=== PATIENT | male | born 1960 | race Caucasian/White ===

== ENCOUNTER → 2021-05-16 | Outpatient (CLI) | payer MEDICAID ==
[~2021-05-16] MED LIST: CATHETER FLUSH 10 ML SYR IV PRN; REGADENOSON 0.4 MG/5 ML SYR (LEXISCAN) IV ONE
[2021-05-16 13:03] VITALS: BP 170/96
--- NOTE | 2021-05-18 16:45 | NUCLEAR STRESS TEST ---
REGADENOSON NUCLEAR STRESS Date of procedure: 05/16/2021. Primary care provider: [facility] Admitting physician: Eduardo Finley Jr., MD. INDICATION: Coronary artery disease with unspecified angina pectoris. BASELINE ELECTROCARDIOGRAM: Sinus rhythm with poor R wave progression. STRESS TEST PROCEDURE: The patient was administered 0.4 mg of intravenous Regadenoson. The resting heart rate was 77 bpm and the peak heart rate was 94 bpm. The resting blood pressure was 170/96 mmHg and the minimum blood pressure was 160/100 mmHg. This represents a normal heart rate and a normal blood pressure response to Regadenoson. The test was stopped due to the protocol. There was no chest discomfort during the test. There were no arrhythmias during the test. There were no significant stress induced electrocardiogram changes. NUCLEAR PROCEDURE: The patient was administered 10.1 mCi of intravenous technetium 99m Tetrofosmin at rest for the rest images. The patient was subsequently administered 30.3 mCi of intravenous technetium 99m Tetrofosmin at peak stress for the stress images. Following an appropriate wait after each injection, imaging was obtained. The images were subsequently processed and reformatted in the usual views. Gated imaging was obtained. The image quality was adequate with a moderate degree of gastrointestinal attenuation artifact. CT attenuation correction was used as a adjunct to standard imaging. Both the corrected and uncorrected images were reviewed for interpretation. NUCLEAR RESULTS: There was a small, moderate intensity, reversible apical defect with a small amount of inducible ischemia with a summed stress score of 6 and a summed difference score of 6. There was normal left ventricular chamber size wi th an end-diastolic volume of 88 mL and an end-systolic volume of 35 mL. There was no evidence of transient ischemic dilatation. The TID ratio was 1.03. There was apical hypokinesis with overall normal left ventricular systolic function with a calculated ejection fraction of 60%. IMPRESSION: 1. Normal heart rate and blood pressure response to regadenoson. 2. There was no chest discomfort, arrhythmias, or electrocardiogram changes during the test. 3. There was a small, moderate intensity, reversible apical defect with a small amount of inducible ischemia with a summed stress score of 6 and a summed difference score of 6. 4. There was apical hypokinesis with overall normal left ventricular systolic function with a calculated ejection fraction of 60%. 5. This is an abnormal result although considered low risk for possible future coronary ischemic events. Certain portions of this document may have been dictated utilizing voice recognition technology. Inherent to this technology, typographical and gramma tical errors may exist. As much as I am diligent to identify and correct these mistakes, some errors may remain in the document. EDUARDO FINLEY JR, MD May 18, 2021 16:45
== END ==
LOC: CARD 11:00
PROVIDERS: ATTEND Internal Medicine Cardiovascular Disease
DX: I35.8 Other nonrheumatic aortic valve disorders (principal); I51.7 Cardiomegaly; I25.119 Atherosclerotic heart disease of native coronary artery with unspecified angina pectoris
CPT/HCPCS: 78452; 93017; 93306

== ENCOUNTER 2022-02-26 17:22 | Emergency (ER) | payer MEDICAID ==
[~2022-02-26] VITALS: Ht 177 cm; Wt 100.0 kg
--- NOTE | 2022-02-26 17:29 | ED General ---
General Chief Complaint: General Problems/Pain Stated Complaint: FELL,CANT STAND History of Present Illness Date Seen by Provider: Feb 26, 2022 Time Seen by Provider: 17:27 Initial Comments 61-year-old male with PMH of CAD with stents over 10 years ago/DM2/HTN, is here at the urging of his and daughter due to complaints of recurrent falling which has been going on for the past 2 months resulting in cuts and scrapes on his legs. Patient has not had any falls for the past 2 days. Patient has a PCP appointment set for tomorrow morning. Denies fever, cough, SOB, chest pain, headache, dizziness. Allergies and Home Medications Allergies Coded Allergies: No Allergy Information Available (Unverified , 05/16/21) Patient Home Medication List Home Medication List Reviewed: Yes Review of Systems Review of Systems Constitutional: no symptoms reported, weakness (generalized, intermittent) EENTM: no symptoms reported Respiratory: no symptoms reported Cardiovascular: no symptoms reported Gastrointestinal: no symptoms reported Genitourinary: no symptoms reported Musculoskeletal: other (falls) Skin: no symptoms reported Psychiatric/Neurological: No Symptoms Reported Hematologic/Lymphatic: No Symptoms Reported Immunological/Allergic: no symptoms reported Physical Exam Vital Signs Vital Signs - First Documented 02/26/22 17:48 Temp 36.3 Pulse 83 Resp 20 B/P (MAP) 115/63 (80) Pulse Ox 90 O2 Delivery Room Air Capillary Refill : Height, Weight, BMI Height: '" Weight: lbs. oz. kg; BMI Method: General Appearance: No Apparent Distress, WD/WN, Other (dry mucous membranes) HEENT: PERRL/EOMI, Normal ENT Inspection Neck: Full Range of Motion, Normal Inspection, Non Tender, Supple Respiratory: Chest Non Tender, Lungs Clear, Normal Breath Sounds, No Respiratory Distress Cardiovascular: Regular Rate, Rhythm Gastrointestinal: Non Tender, Soft, Hernia (umbilical hernia present) Back: Normal Inspection, No CVA Tenderness Extremity: Normal Range of Motion, Other (multiple old scars and abrasions on his legs from prior falls) Neurologic/Psychiatric: Alert, Oriented x3, No Motor/Sensory Deficits, Normal 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, 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 as Tested Skin: Warm/Dry Progress/Results/Core Measures Suspected Sepsis SIRS Temperature: Pulse: Respiratory Rate: Laboratory Tests 02/26/22 14:28: White Blood Count 11.2H Blood Pressure / Mean: Laboratory Tests 02/26/22 14:28: Creatinine 0.69, Platelet Count 320, Total Bilirubin 0.7 Results/Orders Lab Results Laboratory Tests Test 02/26/22 14:28 02/26/22 17:28 Range/Units White Blood Count 11.2 H 4.3-11.0 10^3/uL Red Blood Count 4.85 4.30-5.52 10^6/uL Hemoglobin 15.2 13.3-17.7 g/dL Hematocrit 43 40-54 % Mean Corpuscular Volume 88 80-99 fL Mean Corpuscular Hemoglobin 31 25-34 pg Mean Corpuscular Hemoglobin Concent 36 32-36 g/dL Red Cell Distribution Width 13.4 10.0-14.5 % Platelet Count 320 130-400 10^3/uL Mean Platelet Volume 9.6 9.0-12.2 fL Immature Granulocyte % (Auto) 0 % Neutrophils (%) (Auto) 71 42-75 % Lymphocytes (%) (Auto) 21 12-44 % Monocytes (%) (Auto) 5 0-12 % Eosinophils (%) (Auto) 2 0-10 % Basophils (%) (Auto) 0 0-10 % Neutrophils # (Auto) 7.9 H 1.8-7.8 10^3/uL Lymphocytes # (Auto) 2.3 1.0-4.0 10^3/uL Monocytes # (Auto) 0.6 0.0-1.0 10^3/uL Eosinophils # (Auto) 0.2 0.0-0.3 10^3/uL Basophils # (Auto) 0.0 0.0-0.1 10^3/uL Immature Granulocyte # (Auto) 0.1 0.0-0.1 10^3/uL Sodium Level 141 135-145 MMOL/L Potassium Level 2.9 L 3.6-5.0 MMOL/L Chloride Level 92 L 98-107 MMOL/L Carbon Dioxide Level 34 H 21-32 MMOL/L Anion Gap 15 H 5-14 MMOL/L Blood Urea Nitrogen 8 7-18 MG/DL Creatinine 0.69 0.60-1.30 MG/DL Estimat Glomerular Filtration Rate 105 BUN/Creatinine Ratio 12 Glucose Level 141 H 70-105 MG/DL Calcium Level 6.1 L 8.5-10.1 MG/DL Corrected Calcium 6.7 L 8.5-10.1 MG/DL Magnesium Level 0.4 *L 1.6-2.4 MG/DL Total Bilirubin 0.7 0.1-1.0 MG/DL Aspartate Amino Transf (AST/SGOT) 31 5-34 U/L Alanine Aminotransferase (ALT/SGPT) 19 0-55 U/L Alkaline Phosphatase 221 H 40-136 U/L Troponin I < 0.30 <0.30 NG/ML Total Protein 6.8 6.4-8.2 GM/DL Albumin 3.3 3.2-4.5 GM/DL Serum Alcohol < 10 <10 MG/DL Pro-B-Type Natriuretic Peptide 251.5 H <125.0 PG/ML My Orders Orders - KATHERINE SANCHEZ MD Alcohol (02/26/22 17:46) Cbc With Automated Diff (02/26/22 17:46) Comprehensive Metabolic Panel (02/26/22 17:46) Drug Screen Stat (Urine) (02/26/22 17:46) Magnesium (02/26/22 17:46) Ua Culture If Indicated (02/26/22 17:46) Troponin I Fs (02/26/22 17:46) Chest 1 View Ap/Pa Only (02/26/22 17:46) Ekg Tracing (02/26/22 17:46) Orthostatic Vital Signs (Adult (02/26/22 17:46) Ct Head Wo (02/26/22 17:47) Ed Iv/Invasive Line Start (02/26/22 18:21) Ns Iv 1000 Ml (Sodium Chloride 0.9%) (02/26/22 18:30) Potassium Cl 10meq/50ml Ivpb (Kcl 10 Meq (02/26/22 18:21) Potassium Chloride (Tablet) (K Dur Table (02/26/22 18:30) Probnp Fs (02/26/22 18:29) Magnesium 1 Gm/100 Ml Ivpb (Magnesium Syed (02/26/22 18:45) Magnesium 1 Gm/100 Ml Ivpb (Magnesium Syed (02/26/22 18:45) Medications Given in ED Current Medications Medications Dose Ordered Sig/Calvin Route Start Time Stop Time Status Last Admin Dose Admin Potassium Chloride 40 meq ONCE ONCE PO 02/26/22 18:30 02/26/22 18:31 DC 02/26/22 18:33 40 MEQ Vital Signs/I&O 02/26/22 02/26/22 17:48 18:38 Temp 36.3 Pulse 83 75 80 90 Resp 20 B/P (MAP) 115/63 (80) 109/68 (82) 86/59 (68) 116/67 (83) Pulse Ox 90 O2 Delivery Room Air Capillary Refill : Progress Note : Progress Note 1. RECURRENT FALLS: ELECTROLYTE DISTURBANCE: HYPOKALEMIA & HYPOMAGNESEMIA: - CT HEAD: no acute findings - CXR: mild pulmonary edema, however clinically lungs are clear and pt does not have any SOB, and BNP level is 250 with O2 saturation at 96% on room air. - EKG/ Troponin: non-ischemic - CMP: s. K is 3.0 and S. Mg is 0.4 - Potassium repletion with iv Potassium 20mEq and oral potassium 40mEq STAT - Magnesium repletion with Mag Sulfate 2mg iv STAT - NS IVF bolus STAT - Prescription for magnesium and potassium - Pt has PCP appointment tomorrow and will need repeat CMP lab -The patient was seen in the ED, and treated appropriately to presentation at a specific point in time. Patient is informed that there is a possibility that disease and illness can evolve and change in acuity rapidly or slowly after patient is discharged from the ER. Precautionary advice given to the patient for immediate return to ER if symptoms worsen or do not resolve, and to seek emergency care sooner rather than later. Pt also advised on the importance of PCP follow up and compliance with management and follow up plan with PCP and/or specialist, as this is part of the management plan. Pt verbally expressed understanding. 2. ORTHOSTATIC HYPOTENSION: -Advised pt to rise slowly from sitting and lying down position, and to drink a glass of water before rising. Pt only drinks one glass of water everyday. Advised to increase water intake. Diagnostic Imaging Diagonstic Imaging: Xray, CT Plain Films/CT/US/NM/MRI: chest, head Comments [facility], [place] NAME: CRISTIAN OSHEA [facility] REC#: [id number] PT STATUS: REG ER : 1960 PHYSICIAN: KATHERINE SANCHEZ MD ADMIT DATE: 02/26/22/ER FS Signed Date of Exam:02/26/22 CT HEAD WO EXAMINATION: CT head without contrast. TECHNIQUE: Multiple contiguous axial images were obtained through the brain without the use of intravenous contrast. All CT scans use one or more of the following dose optimizing techniques: automated exposure control, MA and/or KvP adjustment based on patient size and exam type or iterative reconstruction. HISTORY: Fall. Syncopal episode. COMPARISON: None available. FINDINGS: No large acute territorial ischemia, mass, or hemorrhage. No midline shift or mass effect. The ventricles, cortical sulci, and basilar cisterns are patent and unremarkable. The orbits are normal. Retained secretions are seen throughout the right maxillary, ethmoid, and frontal sinuses. Mastoid air cells are clear. Contusion is seen overlying the lateral right orbit. No osseus lesions or fractures are seen. IMPRESSION: 1. No large acute territorial ischemia, mass, or hemorrhage. 2. Chronic right-sided sinusitis. Dictated by: Dictated on workstation # [id number] Dict: 02/26/221817 Trans: 02/26/221827 ZHOU [id number] Interpreted by: MICK JAQUEZ DO Electronically signed by: MICK JAQUEZ DO 02/26/221827 [facility], [place] NAME: CRISTIAN OSHEA [facility] REC#: [id number] PT STATUS: REG ER : 1960 PHYSICIAN: KATHERINE SANCHEZ MD ADMIT DATE: 02/26/22/ER FS Draft Date of Exam:02/26/22 CHEST 1 VIEW AP/PA ONLY EXAMINATION: Chest 1 view HISTORY: near syncope COMPARISON: None available. FINDINGS: There is mild edema. No pleural effusion or pneumothorax. Heart size is normal for portable technique. IMPRESSION: 1. Mild pulmonary edema. Dictated on workstation # [id number] Dict: 02/26/221817 Trans: 02/26/221818 ZHOU [id number] Interpreted by: MIN VASQUEZ MD Electronically signed by: Departure Impression Primary Impression: Recurrent falls Additional Impressions: Orthostatic hypotension Electrolyte disturbance Hypomagnesemia Hypokalemia Disposition: 01 HOME, SELF-CARE (ERASED) Condition: Improved Departure-Patient Inst. Referrals: YOHAN LILLY MD (PCP/Family) Primary Care Physician Patient Instructions: Hypokalemia (DC), Preventing Falls in Older Adults, Low Magnesium Level (DC), Orthostatic Hypotension (DC) Add. Discharge Instructions: - Prescription for magnesium and potassium - Pt has PCP appointment tomorrow and will need repeat CMP lab -Advised pt to rise slowly from sitting and lying down position, and to drink a glass of water before rising. Pt only drinks one glass of water everyday. Advised to increase water intake. All discharge instructions reviewed with patient and/or family. Voiced understanding. Scripts Potassium Chloride (Potassium Chloride) 20 Meq Packet 20 MEQ PO DAILY for 7 Days, #7 PACKET Prov: KATHERINE SANCHEZ MD 02/26/22 Magnesium (Magnesium) 250 Mg Tablet 250 MG PO DAILY for 7 Days, #7 TAB Prov: KATHERINE SANCHEZ MD 02/26/22 KATHERINE SANCHEZ MD Feb 26, 2022 17:28
[2022-02-26 17:55] LABS: BASOPHILS % (AUTO) 0 % (0-10); EOSINOPHILS # (AUTO) 0.2 10^3/uL (0.0-0.3); EOSINOPHILS % (AUTO) 2 % (0-10); HEMATOCRIT 43 % (40-54); HEMOGLOBIN 15.2 g/dL (13.3-17.7); LYMPHOCYTES # (AUTO) 2.3 10^3/uL (1.0-4.0); LYMPHOCYTES % (AUTO) 21 % (12-44); MEAN CORPUSCULAR HEMOGLOBIN 31 pg (25-34); MEAN CORPUSCULAR HGB CONC 36 g/dL (32-36); MEAN CORPUSCULAR VOLUME 88 fL (80-99); MEAN PLATELET VOLUME 9.6 fL (9.0-12.2); MONOCYTES # (AUTO) 0.6 10^3/uL (0.0-1.0); MONOCYTES % (AUTO) 5 % (0-12); NEUTROPHILS # (AUTO) 7.9 10^3/uL (1.8-7.8); NEUTROPHILS % (AUTO) 71 % (42-75); PLATELET COUNT 320 10^3/uL (130-400); WHITE BLOOD COUNT 11.2 10^3/uL (4.3-11.0)
[2022-02-26 18:15] LABS: BUN/CREATININE RATIO 12; CALCIUM 6.1 MG/DL (8.5-10.1); CARBON DIOXIDE 34 MMOL/L (21-32); CHLORIDE 92 MMOL/L (98-107); CREATININE SERUM 0.69 MG/DL (0.60-1.30); GFR ESTIMATED 105; GLUCOSE 141 MG/DL (70-105); POTASSIUM 2.9 MMOL/L (3.6-5.0); SODIUM 141 MMOL/L (135-145)
[2022-02-26 18:16] LABS: ALANINE AMINOTRANSFERASE 19 U/L (0-55); ALKALINE PHOSPHATASE 221 U/L (40-136); BILIRUBIN,TOTAL 0.7 MG/DL (0.1-1.0); MAGNESIUM 0.4 MG/DL (1.6-2.4)
[2022-02-26 18:17] LABS: ALBUMIN 3.3 GM/DL (3.2-4.5); TOTAL PROTEIN 6.8 GM/DL (6.4-8.2)
--- NOTE | 2022-02-26 18:20 | Diagnostic Imaging Report ---
EXAMINATION: Chest 1 view HISTORY: near syncope COMPARISON: None available. FINDINGS: There is mild edema. No pleural effusion or pneumothorax. Heart size is normal for portable technique. IMPRESSION: 1. Mild pulmonary edema. Dictated by: Dictated on workstation # [id number]
[2022-02-26] MEDS ORDERED: POTASSIUM CL 10MEQ/50ML IVPB 50 ML IV STA (18:21)
--- NOTE | 2022-02-26 18:21 | Diagnostic Imaging Report ---
EXAMINATION: CT head without contrast. TECHNIQUE: Multiple contiguous axial images were obtained through the brain without the use of intravenous contrast. All CT scans use one or more of the following dose optimizing techniques: automated exposure control, MA and/or KvP adjustment based on patient size and exam type or iterative reconstruction. HISTORY: Fall. Syncopal episode. COMPARISON: None available. FINDINGS: No large acute territorial ischemia, mass, or hemorrhage. No midline shift or mass effect. The ventricles, cortical sulci, and basilar cisterns are patent and unremarkable. The orbits are normal. Retained secretions are seen throughout the right maxillary, ethmoid, and frontal sinuses. Mastoid air cells are clear. Contusion is seen overlying the lateral right orbit. No osseus lesions or fractures are seen. IMPRESSION: 1. No large acute territorial ischemia, mass, or hemorrhage. 2. Chronic right-sided sinusitis. Dictated by: Dictated on workstation # [id number]
[2022-02-26] MEDS ORDERED: KCL 20 MEQ TAB (K-DUR) PO ONE (18:30)
[2022-02-26] MEDS ORDERED: MAGNESIUM 2 GM/50 ML IVPB 50 ML IV ONE (18:30)
[2022-02-26] MEDS ORDERED: NS IV 1000 ML 1,000 ML IV SCH (18:30)
[2022-02-26 18:38] VITALS: BP_SYST 109; BP_SYST 116; BP_SYST 86; BP_DIAS 59; BP_DIAS 67; BP_DIAS 68
[2022-02-26] MEDS ORDERED: MAGNESIUM 1 GM/100 ML IVPB 100 ML IV ONE ×2 (18:45)
[2022-02-26] MEDS ORDERED: MAGN250T31 PO (19:28)
[2022-02-26] MEDS ORDERED: POTA20PA28 PO (19:28)
[2022-02-26 20:25] VITALS: BP 139/72
== END 2022-02-26 20:25 | disposition home or self-care (01) ==
LOC: EDUNIT# 17:22 → ER FS 17:23
DX: I95.1 Orthostatic hypotension (principal); E87.6 Hypokalemia; E83.42 Hypomagnesemia; R29.6 Repeated falls; Z86.79 Personal history of other diseases of the circulatory system; Z95.5 Presence of coronary angioplasty implant and graft; Z28.310 Unvaccinated for COVID-19
CPT/HCPCS: 36415; 70450; 71045; 80053; 80320; 83735; 83880; 84484; 85025; 93005; 93041

== ENCOUNTER 2022-06-30 11:51 | Emergency (ER) | payer MEDICAID ==
[~2022-06-30] VITALS: Ht 177 cm; Wt 100.0 kg
[~2022-06-30 11:51] MED LIST changes: -CATHETER FLUSH 10 ML SYR IV PRN; +MAGN250T31 PO; +POTA20PA28 PO; -REGADENOSON 0.4 MG/5 ML SYR (LEXISCAN) IV ONE
[2022-06-30 12:03] VITALS: BP 93/59
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
[2022-06-30 12:15] LABS: BASOPHILS % (AUTO) 0 % (0-10); EOSINOPHILS % (AUTO) 0 % (0-10); HEMATOCRIT 42 % (40-54); HEMOGLOBIN 14.8 g/dL (13.3-17.7); LYMPHOCYTES # (AUTO) 1.5 10^3/uL (1.0-4.0); LYMPHOCYTES % (AUTO) 10 % (12-44); MEAN CORPUSCULAR HEMOGLOBIN 31 pg (25-34); MEAN CORPUSCULAR HGB CONC 36 g/dL (32-36); MEAN CORPUSCULAR VOLUME 88 fL (80-99); MEAN PLATELET VOLUME 9.4 fL (9.0-12.2); MONOCYTES # (AUTO) 0.6 10^3/uL (0.0-1.0); MONOCYTES % (AUTO) 4 % (0-12); NEUTROPHILS # (AUTO) 12.1 10^3/uL (1.8-7.8); NEUTROPHILS % (AUTO) 85 % (42-75); PLATELET COUNT 312 10^3/uL (130-400); WHITE BLOOD COUNT 14.4 10^3/uL (4.3-11.0)
[2022-06-30] MEDS ORDERED: NS IV 1000 ML 500 ML IV SCH (12:15)
[2022-06-30 12:31] LABS: LYMPHOCYTES % (MANUAL) 13 %; MONOCYTES % (MANUAL) 5 %; NEUTROPHILS % (MANUAL) 82 %; PLATELET ESTIMATE NORMAL; RBC MORPH NORMAL
[2022-06-30 12:32] LABS: ALANINE AMINOTRANSFERASE 14 U/L (0-55); ALBUMIN 3.2 GM/DL (3.2-4.5); ALKALINE PHOSPHATASE 178 U/L (40-136); BILIRUBIN,TOTAL 0.5 MG/DL (0.1-1.0); BUN/CREATININE RATIO 11; CARBON DIOXIDE 30 MMOL/L (21-32); CHLORIDE 99 MMOL/L (98-107); CREATININE SERUM 0.66 MG/DL (0.60-1.30); GFR ESTIMATED 107; GLUCOSE 156 MG/DL (70-105); SODIUM 143 MMOL/L (135-145); TOTAL PROTEIN 6.6 GM/DL (6.4-8.2)
[2022-06-30 12:36] LABS: POTASSIUM 3.4 MMOL/L (3.6-5.0)
--- NOTE | 2022-06-30 12:46 | Diagnostic Imaging Report ---
CLINICAL INDICATION: Patient with hypoxia. Patient has seizure-like activity. EXAM: Portable chest x-ray, upright view. COMPARISON: Chest x-ray dated 02/26/2022. FINDINGS: Lungs/pleura: Lungs are clear. There is no pneumothorax. There is no pleural effusion. Mediastinum: Unremarkable. Pulmonary vasculature: Unremarkable. Heart: Unremarkable. Bones/extrathoracic soft tissue: There are small spurs involving the spine. There is interposition of air-filled intestine overlying the right upper quadrant. IMPRESSION: There is no radiographic evidence of acute cardiopulmonary process. Dictated by: Dictated on workstation # [id number]
[2022-06-30] MEDS ORDERED: NS IV 500 ML 0 ML ONE (12:55)
[2022-06-30] MEDS ORDERED: CEFEPIME INJECTION 1,000 MG in NS (IVPB) 50 ML IV ONE (13:15)
[2022-06-30 13:48] LABS: BILIRUBIN,URINE NEGATIVE (NEGATIVE); CLARITY,URINE CLEAR; COLOR,URINE YELLOW; GLUCOSE, URINE (UA) NEGATIVE (NEGATIVE); KETONES,URINE NEGATIVE (NEGATIVE); LEUKOCYTE ESTERASE ,URINE NEGATIVE (NEGATIVE); NITRITE,URINE NEGATIVE (NEGATIVE); PROTEIN,URINE NEGATIVE (NEGATIVE)
--- NOTE | 2022-06-30 13:51 | Diagnostic Imaging Report ---
CT HEAD WO DATE: 06/30/2022 12:28 PM INDICATION: possible seizure. TECHNIQUE: Computed tomography images of the head were obtained from skull base to vertex without intravenous contrast. One or more of the following dose reduction techniques were utilized: Automated exposure control (AEC), Adjustment of mA and/or kV according to patient size, Use of iterative reconstruction technique such as ASiR, CT scan done according to ALARA and image gently/image wisely COMPARISON: CT head without contrast 02/26/2022. FINDINGS: There is normal oswald-white matter differentiation. No hyperdense vessel to suggest acute thrombus. No acute intracranial hemorrhage. Mild generalized cerebral volume loss. Mild nonspecific periventricular hypoattenuation. Calcified atherosclerosis of the bilateral cavernous and paraclinoid internal carotid arteries and intracranial vertebral arteries. No intra- or extra-axial mass or fluid collection. The ventricles are normal in size, shape, and morphology. The subarachnoid cisterns are patent. Complete opacification of the right maxillary sinus and mucosal thickening within the ethmoid, and sphenoid sinuses.. The mastoid air cells are clear. The visualized portions of the orbits are normal. No aggressive osseous lesion or fracture. IMPRESSION: No acute intracranial hemorrhage. No large vascular territory farley-white loss. No intracranial mass, midline shift, or hydrocephalus. Mild cerebral volume loss. Mild chronic small vessel ischemic disease. Complete opacification of the right maxillary sinus and mucosal thickening within the ethmoid, and sphenoid sinuses. Dictated by: Dictated on workstation # [id number]
[2022-06-30 13:54] LABS: BACTERIA,URINE NEGATIVE /HPF
[2022-06-30] MEDS ORDERED: LEVO-55 PO (14:05)
== END 2022-06-30 14:15 | disposition left against medical advice (07) ==
LOC: EDUNIT# 11:51 → ER FS 11:52
DX: I95.9 Hypotension, unspecified (principal); R25.9 Unspecified abnormal involuntary movements; D72.829 Elevated white blood cell count, unspecified; R74.02 Elevation of levels of lactic acid dehydrogenase [LDH]; Z20.822 Contact with and (suspected) exposure to COVID-19
CPT/HCPCS: 36415; 70450; 71045; 80053; 81000; 83605; 84484; 85007; 85027; 87040; 87088; 87636; 93005

== ENCOUNTER 2022-07-13 18:53 | Inpatient (IN) | payer MEDICAID ==
[~2022-07-13] VITALS: Ht 175.2 cm; Wt 90.5 kg
[~2022-07-13 18:53] MED LIST changes: +LEVO-55 PO
[2022-07-13] MEDS ORDERED: NS IV 1000 ML 1,000 ML IV STA (18:58)
[2022-07-13 19:04] LABS: BASOPHILS % (AUTO) 0 % (0-10); EOSINOPHILS % (AUTO) 0 % (0-10); HEMATOCRIT 41 % (40-54); HEMOGLOBIN 14.4 g/dL (13.3-17.7); LYMPHOCYTES # (AUTO) 1.3 10^3/uL (1.0-4.0); LYMPHOCYTES % (AUTO) 10 % (12-44); MEAN CORPUSCULAR HEMOGLOBIN 31 pg (25-34); MEAN CORPUSCULAR HGB CONC 35 g/dL (32-36); MEAN CORPUSCULAR VOLUME 89 fL (80-99); MEAN PLATELET VOLUME 9.3 fL (9.0-12.2); MONOCYTES # (AUTO) 0.8 10^3/uL (0.0-1.0); MONOCYTES % (AUTO) 6 % (0-12); NEUTROPHILS # (AUTO) 11.1 10^3/uL (1.8-7.8); NEUTROPHILS % (AUTO) 84 % (42-75); PLATELET COUNT 270 10^3/uL (130-400); WHITE BLOOD COUNT 13.3 10^3/uL (4.3-11.0)
[2022-07-13] MEDS ORDERED: ONDANSETRON 4 MG/2 ML (SDV) Z0FRAN IVP STA (19:05)
--- NOTE | 2022-07-13 19:19 | ED GI ---
General Chief Complaint: Abdominal/GI Problems Stated Complaint: VOMITTING Nursing Triage Note: Pt brought in by ems with the complaint of n/v. Pt states he started feeling sick about 3 days ago Source of Information: Patient, EMS History of Present Illness Date Seen by Provider: Jul 13, 2022 Time Seen by Provider: 18:53 Initial Comments 61-year-old male presenting with complaints of nausea vomiting for the last 3 days. EMS reports that the family had wanted him to go to [place] but they were not willing to drive him there. EMS informed them that they could transport him to [facility] or [place] and they opted for [place]. Patient denies having any abdominal pain. He states he has had symptoms like this previously but was never told what was causing it. He has no diarrhea or change in his bowels. He states he feels generally weak. He was feeling better with the IV fluids and the nausea medicine from EMS. He denies any allergies to medications. Timing/Duration: 2-3 Days Severity/Quality: Severe (Repeated episodes of vomiting over the last 3 days but denies any abdominal pain) Modifying Factors: Worsens With Eating Associated Symptoms: No Back Pain, No Chest Pain, No Diaphoresis, No Fever/Chills, No Fatigue, No Headache, No Heartburn; Nausea/Vomiting; No Rash, No Shortness of Air, No Swelling/Mass in Abdomen, No Syncope, No Weakness Allergies and Home Medications Allergies Coded Allergies: No Known Drug Allergies (Unverified , 02/26/22) Patient Home Medication List Home Medication List Reviewed: Yes Levofloxacin (Levofloxacin) 500 Mg Tablet, 500 MG PO DAILY Prescribed by: JIN NORRIS MD on 06/30/22 1405 Magnesium (Magnesium) 250 Mg Tablet, 250 MG PO DAILY Prescribed by: KATHERINE SANCHEZ MD on 02/26/221927 Potassium Chloride (Potassium Chloride) 20 Meq Packet, 20 MEQ PO DAILY Prescribed by: KATHERINE SANCHEZ MD on 02/26/221927 Review of Systems Review of Systems Constitutional: No chills; dizziness; No fever; malaise, weakness EENTM: No Symptoms Reported Respiratory: No Symptoms Reported Cardiovascular: Denies Chest Pain Gastrointestinal: Nausea, Poor Appetite, Vomiting Genitourinary: Other (decreased urine output) Musculoskeletal: no symptoms reported Skin: no symptoms reported Psychiatric/Neurological: Weakness (Generalized) Past Jgkcyjd-Hvpfcu-Iiymhg Hx Patient Social History Tobacco Use?: Yes Tobacco type used: Cigarettes Smoking Status: Current Everyday Smoker Use of E-Cig and/or Vaping dev: No Substance use?: No Alcohol Use?: No Pt feels they are or have been: No Immunizations Up To Date First/Initial COVID19 Vaccinat: YES Second COVID19 Vaccination Blaise: YES Past Medical History Surgery/Hospitalization HX: HTN; CHF; CAD; Cardiac Stents; Type 2 DM; High Cholesterol Family Medical History No Pertinent Family Hx Physical Exam Vital Signs Vital Signs - First Documented 07/13/22 18:54 Temp 36.9 Pulse 96 Resp 20 B/P (MAP) 147/74 (98) Pulse Ox 98 O2 Delivery Nasal Cannula O2 Flow Rate 3.00 Capillary Refill : Less Than 3 Seconds Height/Weight/BMI Height: '" Weight: lbs. oz. kg; 31.00 BMI Method: General Appearance: obese, other (Chronically ill-appearing) HEENT: PERRL/EOMI; No pharynx normal (Slightly dry mucous membranes) Neck: non-tender, full range of motion, supple, normal inspection Respiratory: chest non-tender, no respiratory distress, no accessory muscle use, decreased breath sounds Cardiovascular: normal peripheral pulses, regular rate, rhythm Gastrointestinal: soft, no pulsatile mass, abnormal bowel sounds (Hypoactive), tenderness (Diffuse mild tenderness to palpation) Rectal: deferred Extremities: normal range of motion, non-tender, normal capillary refill, pedal edema (Chronic pedal edema 1+ bilateral) Neurologic/Psychiatric: alert, oriented x 3 Skin: normal color, warm/dry Progress/Results/Core Measures Results/Orders Lab Results Laboratory Tests Test 07/13/22 19:00 Range/Units White Blood Count 13.3 H 4.3-11.0 10^3/uL Red Blood Count 4.66 4.30-5.52 10^6/uL Hemoglobin 14.4 13.3-17.7 g/dL Hematocrit 41 40-54 % Mean Corpuscular Volume 89 80-99 fL Mean Corpuscular Hemoglobin 31 25-34 pg Mean Corpuscular Hemoglobin Concent 35 32-36 g/dL Red Cell Distribution Width 13.4 10.0-14.5 % Platelet Count 270 130-400 10^3/uL Mean Platelet Volume 9.3 9.0-12.2 fL Immature Granulocyte % (Auto) 0 % Neutrophils (%) (Auto) 84 H 42-75 % Lymphocytes (%) (Auto) 10 L 12-44 % Monocytes (%) (Auto) 6 0-12 % Eosinophils (%) (Auto) 0 0-10 % Basophils (%) (Auto) 0 0-10 % Neutrophils # (Auto) 11.1 H 1.8-7.8 10^3/uL Lymphocytes # (Auto) 1.3 1.0-4.0 10^3/uL Monocytes # (Auto) 0.8 0.0-1.0 10^3/uL Eosinophils # (Auto) 0.0 0.0-0.3 10^3/uL Basophils # (Auto) 0.0 0.0-0.1 10^3/uL Immature Granulocyte # (Auto) 0.1 0.0-0.1 10^3/uL Sodium Level 138 135-145 MMOL/L Potassium Level 2.5 *L 3.6-5.0 MMOL/L Chloride Level 89 L 98-107 MMOL/L Carbon Dioxide Level 37 H 21-32 MMOL/L Anion Gap 12 5-14 MMOL/L Blood Urea Nitrogen 14 7-18 MG/DL Creatinine 0.56 L 0.60-1.30 MG/DL Estimat Glomerular Filtration Rate 112 BUN/Creatinine Ratio 25 Glucose Level 157 H 70-105 MG/DL Calcium Level 6.4 L 8.5-10.1 MG/DL Corrected Calcium 6.8 L 8.5-10.1 MG/DL Total Bilirubin 1.0 0.1-1.0 MG/DL Aspartate Amino Transf (AST/SGOT) 28 5-34 U/L Alanine Aminotransferase (ALT/SGPT) 15 0-55 U/L Alkaline Phosphatase 150 H 40-136 U/L Total Protein 6.9 6.4-8.2 GM/DL Albumin 3.5 3.2-4.5 GM/DL Lipase 18 8-78 U/L My Orders Orders - RADAMES WAYNE MD Comprehensive Metabolic Panel (07/13/22 18:58) Lipase (07/13/22 18:58) Ua Culture If Indicated (07/13/22 18:58) Ed Iv/Invasive Line Start (07/13/22 18:58) Cbc With Automated Diff (07/13/22 18:58) Ns Iv 1000 Ml (Sodium Chloride 0.9%) (07/13/22 18:58) Ct Abdomen/Pelvis Wo (07/13/22 19:05) Ondansetron Injection (Zofran Injectio (07/13/22 19:05) Potassium Cl 10meq/50ml Ivpb (Kcl 10 Meq (07/13/22 21:04) Potassium Chloride (Tablet) (K Dur Table (07/13/22 21:04) Ed Admission (Communication) (07/13/22 21:36) Vital Signs/I&O 07/13/22 07/13/22 18:54 22:04 Temp 36.9 Pulse 96 102 Resp 20 20 B/P (MAP) 147/74 (98) 142/70 Pulse Ox 98 97 O2 Delivery Nasal Cannula Nasal Cannula O2 Flow Rate 3.00 3.00 Blood Pressure Mean: 98 Progress Progress Note #1: Progress Note Potential diagnosis of gastritis, cholecystitis, diverticulitis, colitis, bowel obstruction, gastroenteritis, peptic ulcer disease. EMS had obtained a peripheral IV access will continue IV fluids through that. Order blood work to include a complete blood count, comprehensive metabolic profile, lipase. Placed on cardiac telemetry monitoring and on my initial interpretation shows a sinus rhythm with a heart rate in the 90s. Order CT scan of the abdomen and pelvis to evaluate for acute pathology in the abdomen and pelvis to cause his symptoms. Administer normal saline 1 L IV fluid bolus for hydration, Zofran 4 mg IV for nausea and vomiting. Progress Note #2: Progress Note His complete blood count showed mild elevation of the white blood cells at 13.3 with a left shift. His hemoglobin was good at 14.4 so it was not showing anemia. His comprehensive metabolic profile showed potassium at 2.5 which is much lower than what he had previously been on testing [address] His BUN was 14 and creatinine is 0.56 show that his kidney function appears to be stable. He had a lipase of 18 so it was not elevated to indicate pancreatitis. Calcium is low at 6.4 and corrected at 6.8. His vomiting was improved with Zofran and IV fluids here in the ED. His potassium was low enough that we will try oral as well as IV to help replace this. Ordered 20 mEq IV and 20 mEq by mouth. Will check with patient and family to see if they would be willing to be admitted for his electrolyte imbalance and to try to make sure his stomach stay settled so he could tolerate oral intake. After discussing with the patient and family he did not initially want to go to [place] because he felt that was too far away. He was more interested in possibly going to [facility] in [place] or [place]. I will call [facility] and [place] and see if they have beds and capability. 2123 I spoke with Danae, RN, nursing power press supervisor at [facility] in [place]. She was down to 1 bed in the hospital and stated that the emergency department had a patient that was going to be admitted to that. If anything changes she would call me back. I updated the patient's family [facility] did not have a bed available. While I was talking to the other hospital his family had talked to him and admission at [facility]. [address] Stark, on-call hospitalist for Dr. Urrutia and [facility]. Discussed his electrolyte imbalance and lab abnormalities as well as recurrent nausea vomiting. CT scan showing stomach wall thickening possible gastritis versus mass. With his potassium and calcium low will admit for IV fluids, telemetry monitoring, potassium supplementation, recheck labs in the a.m. 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 Ordered Zofran 4 mg IV every 6 hours as needed nausea and vomiting and pantoprazole 40 mg IV for gastritis. Will place bridge orders for the patient and admit to [facility] as an observation Diagnostic Imaging Diagonstic Imaging: CT Plain Films/CT/US/NM/MRI: abdomen, pelvis Comments NAME: CRISTIAN OSHEA Louise [facility] REC#: [id number] PT STATUS: REG ER : 1960 PHYSICIAN: RADAMES WAYNE MD ADMIT DATE: 07/13/22/ER FS Draft Date of Exam:07/13/22 CT ABDOMEN/PELVIS WO PROCEDURE: CT abdomen and pelvis without contrast. TECHNIQUE: Multiple contiguous axial images were obtained through the abdomen and pelvis without the use of intravenous contrast. Auto Exposure Controls were utilized during the CT exam to meet ALARA standards for radiation dose reduction. INDICATION: Nausea and vomiting x 3 days. COMPARISON: None. FINDINGS: Emphysematous changes in the lung bases. Airspace consolidation in the left lung base. Indeterminate gastric wall thickening primarily involving the posterior wall of the stomach. The liver, gallbladder, pancreas, spleen, adrenals, kidneys, collecting systems and bladder are negative on this noncontrast exam. Infrarenal abdominal aortic aneurysm measuring up to 5.6 cm in diameter. There is also ectasia of the bilateral common iliac arteries measuring up to 1.8 cm on the right and 2.1 cm on the left. No free intraperitoneal air or fluid. No lymphadenopathy. No evidence of appendicitis. No evidence of bowel obstruction. Fat-containing umbilical hernia with a wide base measuring approximately 2.7 cm. The herniated fat measures approximately 8 x 5 cm. No suspicious inflammatory change or fluid within the hernia. Partially visualized right hydrocele. No acute osseous finding. IMPRESSION: 1. Indeterminate gastric wall thickening primarily involving the posterior wall of the stomach. Findings could be due to gastritis versus a mass. Recommend endoscopy. 2. Infrarenal abdominal aortic aneurysm measures up to 5.6 cm in diameter. 3. Airspace consolidation in the left lung base suspicious for pneumonitis. 4. Partially visualized right hydrocele. 5. Fat-containing umbilical hernia, as above. Dictated on workstation # [id number] Dict: 07/13/221957 Trans: 07/13/222007 [facility] [id number] Interpreted by: TISH FRAGA MD Electronically signed by: Reviewed: Reviewed by Me (I reviewed radiologist report at 2047) Departure Impression Primary Impression: Hypokalemia Additional Impressions: Hypocalcemia Gastritis Qualified Codes: K29.00 - Acute gastritis without bleeding Nausea and vomiting in adult patient Disposition: 30 STILL A PATIENT Condition: Stable Departure-Patient Inst. Referrals: YOHAN URRUTIA MD (PCP/Family) Primary Care Physician RADAMES WAYNE MD Jul 13, 2022 19:19
[2022-07-13 19:20] LABS: ALBUMIN 3.5 GM/DL (3.2-4.5); CALCIUM 6.4 MG/DL (8.5-10.1); CREATININE SERUM 0.56 MG/DL (0.60-1.30); TOTAL PROTEIN 6.9 GM/DL (6.4-8.2)
[2022-07-13 19:21] LABS: POTASSIUM 2.5 MMOL/L (3.6-5.0)
--- NOTE | 2022-07-13 20:08 | Diagnostic Imaging Report ---
PROCEDURE: CT abdomen and pelvis without contrast. TECHNIQUE: Multiple contiguous axial images were obtained through the abdomen and pelvis without the use of intravenous contrast. Auto Exposure Controls were utilized during the CT exam to meet ALARA standards for radiation dose reduction. INDICATION: Nausea and vomiting x 3 days. COMPARISON: None. FINDINGS: Emphysematous changes in the lung bases. Airspace consolidation in the left lung base. Indeterminate gastric wall thickening primarily involving the posterior wall of the stomach. The liver, gallbladder, pancreas, spleen, adrenals, kidneys, collecting systems and bladder are negative on this noncontrast exam. Infrarenal abdominal aortic aneurysm measuring up to 5.6 cm in diameter. There is also ectasia of the bilateral common iliac arteries measuring up to 1.8 cm on the right and 2.1 cm on the left. No free intraperitoneal air or fluid. No lymphadenopathy. No evidence of appendicitis. No evidence of bowel obstruction. Fat-containing umbilical hernia with a wide base measuring approximately 2.7 cm. The herniated fat measures approximately 8 x 5 cm. No suspicious inflammatory change or fluid within the hernia. Partially visualized right hydrocele. No acute osseous finding. IMPRESSION: 1. Indeterminate gastric wall thickening primarily involving the posterior wall of the stomach. Findings could be due to gastritis versus a mass. Recommend endoscopy. 2. Infrarenal abdominal aortic aneurysm measures up to 5.6 cm in diameter. 3. Airspace consolidation in the left lung base suspicious for pneumonitis. 4. Partially visualized right hydrocele. 5. Fat-containing umbilical hernia, as above. Dictated by: Dictated on workstation # [id number]
[2022-07-13] MEDS ORDERED: KCL 20 MEQ TAB (K-DUR) PO STA (21:04)
[2022-07-13] MEDS ORDERED: POTASSIUM CL 10MEQ/50ML IVPB 50 ML IV STA (21:04)
[2022-07-13 23:44] VITALS: BP 149/79
[2022-07-13 23:55] VITALS: BP 142/70
[2022-07-14] VITALS (25 sets, daily range): BP systolic 124–166; BP diastolic 47–98
[2022-07-14] MEDS ORDERED: RT-ALBUTEROL SULF 2.5 MG/3 ML PRE-MIX VIAL INH PRN (00:15)
[2022-07-14] MEDS ORDERED: ONDANSETRON 4 MG/2 ML (SDV) Z0FRAN IV PRN (00:15)
[2022-07-14] MEDS: POTASSIUM CL 10MEQ/50ML IVPB 50 ML IV SCH ×11 (00:54→23:05)
[2022-07-14] MEDS: NS IV 1000 ML 1,000 ML IV SCH ×3 (00:54→20:56)
[2022-07-14] MEDS: PANTOPRAZOLE 40 MG (PROTONIX) VIAL IV SCH ×3 (00:54→20:12)
[2022-07-14 04:42] LABS: BASOPHILS % (AUTO) 0 % (0-10); EOSINOPHILS % (AUTO) 0 % (0-10); HEMATOCRIT 38 % (40-54); HEMOGLOBIN 13.1 g/dL (13.3-17.7); LYMPHOCYTES # (AUTO) 2.6 10^3/uL (1.0-4.0); LYMPHOCYTES % (AUTO) 20 % (12-44); MEAN CORPUSCULAR HEMOGLOBIN 31 pg (25-34); MEAN CORPUSCULAR HGB CONC 35 g/dL (32-36); MEAN CORPUSCULAR VOLUME 90 fL (80-99); MEAN PLATELET VOLUME 9.6 fL (9.0-12.2); MONOCYTES # (AUTO) 0.9 10^3/uL (0.0-1.0); MONOCYTES % (AUTO) 7 % (0-12); NEUTROPHILS # (AUTO) 9.3 10^3/uL (1.8-7.8); NEUTROPHILS % (AUTO) 73 % (42-75); PLATELET COUNT 263 10^3/uL (130-400); WHITE BLOOD COUNT 12.9 10^3/uL (4.3-11.0)
[2022-07-14 05:00] LABS: ALANINE AMINOTRANSFERASE 18 U/L (0-55); ALBUMIN 2.8 GM/DL (3.2-4.5); ALKALINE PHOSPHATASE 101 U/L (40-136); BILIRUBIN,TOTAL 1.2 MG/DL (0.1-1.0); BUN/CREATININE RATIO 19; CARBON DIOXIDE 31 MMOL/L (21-32); CHLORIDE 99 MMOL/L (98-107); CREATININE SERUM 0.57 MG/DL (0.60-1.30); GFR ESTIMATED 112; GLUCOSE 104 MG/DL (70-105); SODIUM 142 MMOL/L (135-145); TOTAL PROTEIN 5.5 GM/DL (6.4-8.2)
[2022-07-14 05:11] LABS: CALCIUM 5.9 MG/DL (8.5-10.1); POTASSIUM 2.5 MMOL/L (3.6-5.0)
[2022-07-14 05:12] LABS: MAGNESIUM < 0.6 MG/DL (1.6-2.4)
[2022-07-14] MEDS ORDERED: POTASSIUM CL 10MEQ/50ML IVPB 100 ML IV ONE (05:42)
[2022-07-14] MEDS ORDERED: MAGNESIUM 1 GM/100 ML IVPB 200 ML IV ONE (05:42)
[2022-07-14] MEDS: MAGNESIUM 1 GM/100 ML IVPB 100 ML IV SCH ×8 (06:10→16:18)
--- NOTE | 2022-07-14 09:26 | Tele-ICU Consult ---
History of Present Illness History of Present Illness Date Seen by Provider: Jul 14, 2022 Time Seen by Provider: 13:05 Date of Admission 07/14/22 History of Present Illness (Tele-ICU Physician , consultation) Available chart/ vitals / labs / Images reviewed H&P is from ER notes Patient's information available about PMH, allergy reviewed in EMR. ROS as per chart and RN report Video assessment done using teleICU camera, rest of exam as per RN Discussed with RN. He is a 61-year-old male who is a diagnosis of to have a pneumonia on 07/04/2022 and this hospital and he was given levofloxacin and discharged home. He has a history of smoking about 2 packs/day. Reportedly he was also taking magnesium and potassium tablet for reasons not clear. He has been experiencing nausea and vomiting about 3 days prior to this admission and he presented to the emergency room and found to have a marked electrolyte abnormalities and a questionable pneumonia. Hence he is admitted for further evaluation and management. Initially he required 1-2 L of nasal cannula for oxygenation and subsequently the oxygen requirement has steadily increased and his mental status decreased. He is unable to give a detailed history later in the course of this morning. He is not even able to hold down any liquids. He is evaluated with a CT of the abdomen and pelvis and found to have a abdominal aortic aneurysm which is 5.6 cm and this was not previously noted. In addition to that he is found to have a gastric wall thickening and a questionable mass in the stomach. He is now being treated with IV fluids and replacement of electrolytes. During the course of this morning due to his decreased mental status and increased oxygen demand I have ordered a CT of the head which is unremarkable and a CT of the chest is also done which showed bibasilar pneumonia which accounts for his increased oxygen demands. In view of the questionable mass and gastritis is surgical consultation also requested. Impression 1. Marked electrolyte abnormalities including hypokalemia hypomagnesemia hypocalcemia most likely due to recurrent vomiting and the nausea. 2. He may have an underlying gastric mass versus gastritis causing his nausea and vomiting also his levofloxacin can cause severe nausea and vomiting also. It is not clear whether he was taking this pill prior to the admission. 3. Abdominal aortic aneurysm without rupture and has been a chronic and previously noted to be handled when he is more stable 4. Bilateral pneumonia basilar question of aspiration is raised. 5. Altered mental status most likely due to sepsis and pneumonia. 6. Acute hypoxic respiratory failure secondary to pneumonia and possibly underlying COPD. 7. Chronic tobacco abuse disorder. Recommendations 1. Replace potassium magnesium and check phosphorus. We will replace also calcium. We will continue to monitor his electrolytes frequently 2. We will start him on IV antibiotics 3. Continue oxygen with nasal cannula and titrate as needed. 4. We will give him IV Protonix 5. Surgical consultation obtained. 6. IV Zofran as needed for nausea and vomiting. 7. We will give Lovenox for DVT prophylaxis. Coordination of care with bedside consultants and primary care physician Critical care time spent today is approximately 45 minutes including MDR Allergies and Home Medications Allergies Coded Allergies: No Known Drug Allergies (Unverified , 02/26/22) Home Medications Levofloxacin 500 Mg Tablet, 500 MG PO DAILY Prescribed by: JIN NORRIS MD on 06/30/22 1405 Magnesium 250 Mg Tablet, 250 MG PO DAILY Prescribed by: KATHERINE SANCHEZ MD on 02/26/221927 Potassium Chloride 20 Meq Packet, 20 MEQ PO DAILY Prescribed by: KATHERINE SANCHEZ MD on 02/26/221927 Past Medical/Social/Family Hx Patient Social History Tobacco Use?: Yes Tobacco type used: Cigarettes Smoking Status: Current Everyday Smoker Use of E-Cig and/or Vaping dev: No Substance use?: No Alcohol Use?: No Pt stated abuse/neglect: Unable to obtain Immunizations Up To Date Influenza Vaccine Up-to-Date: Yes; Up-to-Date First/Initial COVID19 Vaccinat: YES Second COVID19 Vaccination Blaise: YES Tetanus Booster (TDap): Unknown Current Status Advance Directives: Unable to obtain Communicates: Verbally Primary Language: Lao Preferred Spoken Language: Lao Is interpretation needed?: No Review of Systems Constitutional: see HPI, fever, malaise Focused Exam Height, Weight, BMI Height: '" Weight: lbs. oz. kg; 31.00 BMI Method: Exam Exam Patient acknowledged, consented, and participated in this virtual visit which was conducted using real time audio/video Vital Signs Date Time Temp Pulse Resp B/P (MAP) Pulse Ox O2 Delivery O2 Flow Rate FiO2 07/14/22 08:38 Nasal Cannula 5.00 07/14/22 08:15 94 Nasal Cannula 5.00 07/14/22 08:00 Nasal Cannula 5.00 07/14/22 08:00 36.8 90 16 135/73 (93) 91 Nasal Cannula 5.00 07/14/22 08:00 80 24 139/78 (98) 90 Nasal Cannula 3.00 07/14/22 07:28 72 07/14/22 06:01 90 23 134/76 (95) Nasal Cannula 3.00 07/14/22 05:00 79 28 157/86 (116) 94 Nasal Cannula 3.00 07/14/22 04:00 36.8 07/14/22 04:00 92 28 128/71 (97) 90 Nasal Cannula 3.00 07/14/22 03:00 90 28 150/83 (112) 94 Nasal Cannula 3.00 07/14/22 02:00 90 10 130/79 (95) 90 Nasal Cannula 3.00 07/14/22 01:00 80 07/14/22 01:00 80 11 150/98 (114) 92 Nasal Cannula 3.00 07/14/22 00:45 84 25 159/83 (113) 90 Nasal Cannula 3.00 07/14/22 00:30 105 36 147/75 (95) 92 Nasal Cannula 3.00 07/14/22 00:15 103 21 166/86 (129) 90 Nasal Cannula 3.00 07/14/22 00:00 94 21 136/90 (110) 93 Nasal Cannula 3.00 07/13/22 23:55 36.9 102 97 07/13/22 23:45 99 07/13/22 23:44 37.1 96 19 149/79 (108) Nasal Cannula 3.00 07/13/22 23:30 93 Nasal Cannula 3.00 07/13/22 22:04 102 20 142/70 97 Nasal Cannula 3.00 07/13/22 18:54 36.9 96 20 147/74 (98) 98 Nasal Cannula 3.00 I & O 07/14/22 07:00 Intake Total 1650 ml Balance 1650 ml Height & Weight Height: '" Weight: lbs. oz. kg; 31.00 BMI Method: General Appearance: Chronically ill, Moderate Distress Capillary Refill: Less Than 3 Seconds Gastrointestinal: soft, no pulsatile mass, abnormal bowel sounds (Hypoactive), tenderness (Diffuse mild tenderness to palpation) Other comments PE PER RN Results Lab Laboratory Tests 07/13/22 19:00 07/14/22 04:21 Assessment/Plan Assessment/Plan as above Critical Care: Critically Ill Patient Time spent with patient (mins): 45 MEGAN AGUSTIN MD Jul 14, 2022 09:26
[2022-07-14 09:36] LABS: ABG BASE EXCESS 10.4 MMOL/L (-2.5-2.5); ABG OXYGEN SATURATION 93 % (94-100); ABG PCO2 52 MMHG (35-45); ABG PH 7.44 (7.37-7.43); ABG PO2 65 MMHG (79-93); ABG TCO2 36.5 MMOL/L (21.0-31.0)
[2022-07-14 09:37] LABS: ALLENS TEST YES-POS; INSPIRED O2 5L; PATIENT TEMP 37.4; VENTILATOR NO
--- NOTE | 2022-07-14 10:13 | History & Physical ---
HPI History of Present Illness: Getting ready to go to CT. Drowsy but arouses and answers questions appropriately. States he feels okay. Daughter provides history, states last week he had an episode of seizure appearing activity and loss of awareness when driving, and was taken to ER but refused admission. States he doesn't like doctors or hospitals and recently has not been doing much at home, isn't eating well. The family had a hard time convincing him to come in now. He has been having falls and leg weakness, she states he recently had back imaging due to this and they did note the AAA which he has an appt coming up for at [facility]. He is supposed to use supplemental O2 at home, but does not per daughter's report as he continues to smoke most of the time. Source: patient, family Exam Limitations: clinical condition Date seen by provider: Jul 14, 2022 Time Seen by Provider: 10:00 Attending Physician Marty Urrutia MD PCP Admitting Physician: Shila Stark DO Attending Physician: Cee Mauricio MD Consult Date of Admission Jul 13, 2022 at 23:25 Home Medications Home Medications Reviewed patient Home Medication Reconciliation performed by pharmacy medication reconciliations certified surgical technician and/or nursing. Patients Allergies have been reviewed. 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 [employer]: Moderna/Phizer for bivalent Past Medical History PMHx: Hyperlipidemia Coronary artery disease with stenting Neuropathy Fibromyalgia Hypertension COPD Chronic pain DMII Depression SurgHx: Appendectomy Coronary artery stenting EGD Family Medical History Significant Family History: No Pertinent Family Hx Review of Systems ([facility]) Constitutional: other (unable to obtain) Reviewed Test Results Reviewed Test Results Lab Laboratory Tests Test 07/13/22 19:00 07/14/22 04:21 07/14/22 09:25 07/14/22 13:15 Range/Units White Blood Count 13.3 H 12.9 H 4.3-11.0 10^3/uL Red Blood Count 4.66 4.21 L 4.30-5.52 10^6/uL Hemoglobin 14.4 13.1 L 13.3-17.7 g/dL Hematocrit 41 38 L 40-54 % Mean Corpuscular Volume 89 90 80-99 fL Mean Corpuscular Hemoglobin 31 31 25-34 pg Mean Corpuscular Hemoglobin Concent 35 35 32-36 g/dL Red Cell Distribution Width 13.4 13.2 10.0-14.5 % Platelet Count 270 263 130-400 10^3/uL Mean Platelet Volume 9.3 9.6 9.0-12.2 fL Immature Granulocyte % (Auto) 0 1 % Neutrophils (%) (Auto) 84 H 73 42-75 % Lymphocytes (%) (Auto) 10 L 20 12-44 % Monocytes (%) (Auto) 6 7 0-12 % Eosinophils (%) (Auto) 0 0 0-10 % Basophils (%) (Auto) 0 0 0-10 % Neutrophils # (Auto) 11.1 H 9.3 H 1.8-7.8 10^3/uL Lymphocytes # (Auto) 1.3 2.6 1.0-4.0 10^3/uL Monocytes # (Auto) 0.8 0.9 0.0-1.0 10^3/uL Eosinophils # (Auto) 0.0 0.0 0.0-0.3 10^3/uL Basophils # (Auto) 0.0 0.0 0.0-0.1 10^3/uL Immature Granulocyte # (Auto) 0.1 0.1 0.0-0.1 10^3/uL Sodium Level 138 142 137 135-145 MMOL/L Potassium Level 2.5 *L 2.5 *L 2.7 L 3.6-5.0 MMOL/L Chloride Level 89 L 99 98 98-107 MMOL/L Carbon Dioxide Level 37 H 31 26 21-32 MMOL/L Anion Gap 12 12 13 5-14 MMOL/L Blood Urea Nitrogen 14 11 9 7-18 MG/DL Creatinine 0.56 L 0.57 L 0.60 0.60-1.30 MG/DL Estimat Glomerular Filtration Rate 112 112 110 BUN/Creatinine Ratio 25 19 15 Glucose Level 157 H 104 197 H 70-105 MG/DL Calcium Level 6.4 L 5.9 *L 6.3 L 8.5-10.1 MG/DL Corrected Calcium 6.8 L 6.9 L 8.5-10.1 MG/DL Total Bilirubin 1.0 1.2 H 0.1-1.0 MG/DL Aspartate Amino Transf (AST/SGOT) 28 38 H 5-34 U/L Alanine Aminotransferase (ALT/SGPT) 15 18 0-55 U/L Alkaline Phosphatase 150 H 101 40-136 U/L Total Protein 6.9 5.5 L 6.4-8.2 GM/DL Albumin 3.5 2.8 L 3.2-4.5 GM/DL Lipase 18 8-78 U/L Phosphorus Level 2.8 2.2 L 2.3-4.7 MG/DL Magnesium Level < 0.6 *L 1.6 1.6-2.4 MG/DL Blood Gas Puncture Site RR Blood Gas Patient Temperature 37.4 Arterial Blood pH 7.44 H 7.37-7.43 Arterial Blood Partial Pressure CO2 52 H 35-45 MMHG Arterial Blood Partial Pressure O2 65 L 79-93 MMHG Arterial Blood HCO3 35 H 23-27 MMOL/L Arterial Blood Total CO2 36.5 H 21.0-31.0 MMOL/L Arterial Blood Oxygen Saturation 93 L 94-100 % Arterial Blood Base Excess 10.4 H -2.5-2.5 MMOL/L Raoul Test YES-POS Blood Gas Ventilator Setting NO Blood Gas Inspired Oxygen 5L Radiology CT abd/pelvis 07/13: IMPRESSION: 1. Indeterminate gastric wall thickening primarily involving the posterior wall of the stomach. Findings could be due to gastritis versus a mass. Recommend endoscopy. 2. Infrarenal abdominal aortic aneurysm measures up to 5.6 cm in diameter. 3. Airspace consolidation in the left lung base suspicious for pneumonitis. 4. Partially visualized right hydrocele. 5. Fat-containing umbilical hernia, as above. Physical Exam-([facility]) Physical Exam Vital Signs VS - Last 72 Hours, by Label 07/13/22 07/13/22 07/13/22 07/13/22 18:54 22:04 23:30 23:44 Temp 36.9 37.1 Pulse 96 102 96 Resp 20 20 19 B/P (MAP) 147/74 (98) 142/70 149/79 (108) Pulse Ox 98 97 93 O2 Delivery Nasal Cannula Nasal Cannula Nasal Cannula Nasal Cannula O2 Flow Rate 3.00 3.00 3.00 3.00 07/13/22 07/13/22 07/14/22 07/14/22 23:45 23:55 00:00 00:15 Temp 36.9 Pulse 99 102 94 103 Resp 21 B/P (MAP) 136/90 (110) 166/86 (129) Pulse Ox 97 93 90 O2 Delivery Nasal Cannula Nasal Cannula O2 Flow Rate 3.00 3.00 07/14/22 07/14/22 07/14/22 07/14/22 00:30 00:45 01:00 01:00 Pulse 105 84 80 80 Resp 36 25 11 B/P (MAP) 147/75 (95) 159/83 (113) 150/98 (114) Pulse Ox 92 90 92 O2 Delivery Nasal Cannula Nasal Cannula Nasal Cannula O2 Flow Rate 3.00 3.00 3.00 07/14/22 07/14/22 07/14/22 07/14/22 02:00 03:00 04:00 04:00 Temp 36.8 Pulse 90 90 92 Resp 10 28 B/P (MAP) 130/79 (95) 150/83 (112) 128/71 (97) Pulse Ox 90 94 90 O2 Delivery Nasal Cannula Nasal Cannula Nasal Cannula O2 Flow Rate 3.00 3.00 3.00 07/14/22 07/14/22 07/14/22 07/14/22 05:00 06:01 07:28 08:00 Pulse 79 90 72 80 Resp 28 24 B/P (MAP) 157/86 (116) 134/76 (95) 139/78 (98) Pulse Ox 94 90 O2 Delivery Nasal Cannula Nasal Cannula Nasal Cannula O2 Flow Rate 3.00 3.00 3.00 07/14/22 07/14/22 07/14/22 07/14/22 08:00 08:00 08:15 08:38 Temp 36.8 Pulse 90 Resp 16 B/P (MAP) 135/73 (93) Pulse Ox 91 94 O2 Delivery Nasal Cannula Nasal Cannula Nasal Cannula Nasal Cannula O2 Flow Rate 5.00 5.00 5.00 5.00 07/14/22 07/14/22 07/14/22 07/14/22 09:00 10:00 11:00 12:00 Temp 36.9 Pulse 90 87 83 Resp 31 19 23 B/P (MAP) 129/47 (74) 134/63 (86) 136/74 (94) Pulse Ox 91 95 94 O2 Delivery Nasal Cannula Nasal Cannula Nasal Cannula O2 Flow Rate 5.00 5.00 5.00 07/14/22 07/14/22 07/14/22 12:00 12:23 13:00 Pulse 84 83 82 Resp 23 29 B/P (MAP) 140/76 (97) 133/72 (92) Pulse Ox 94 94 O2 Delivery Nasal Cannula Nasal Cannula O2 Flow Rate 5.00 5.00 Capillary Refill : Less Than 3 Seconds General Appearance: moderate distress Respiratory: decreased breath sounds Cardiovascular: regular rate, rhythm Gastrointestinal: normal bowel sounds, non tender Extremities: pedal edema, other (peeling and scabbing of both legs) Neurologic/Psychiatric: alert, oriented x 3 Assessment/Plan Assessment/Plan Admission Status: Inpatient Order (span 2 midnights) Reason for Inpatient Admission: Severe electrolyte distrubances, hypoxia (1) Gastritis Status: Acute Assessment & Plan: PPI, ondansetron prn. NS at 100 mls/hr. Discussed CT findings with daughter. Will need EGD at some point. Qualifiers: Qualified Codes: K29.00 - Acute gastritis without bleeding (2) Hypomagnesemia Status: Acute Assessment & Plan: Suspect secondary to nausea/vomiting and poor intake. Replace and recheck (3) Recurrent falls Status: Acute Assessment & Plan: PT (4) Hypokalemia Status: Acute Assessment & Plan: Suspect secondary to nausea/vomiting and poor intake. Replace and recheck (5) Nausea and vomiting in adult patient Status: Acute (6) Gastric wall thickening Status: Acute (7) Abdominal aortic aneurysm Status: Chronic Assessment & Plan: 5.6 cm, may need repair, has outpatient referral scheduled. (8) Diabetes Status: Chronic Assessment & Plan: Sliding scale insulin, diabetic diet when tolerating Qualifiers: Qualified Codes: E11.65 - Type 2 diabetes mellitus with hyperglycemia; Z79.4 - emt intermediate (current) use of insulin (9) Hypertension Status: Chronic Assessment & Plan: Resume home meds when needed. (10) Hyperlipidemia Status: Chronic (11) Coronary artery disease Status: Chronic (12) COPD (chronic obstructive pulmonary disease) Status: Chronic Assessment & Plan: Resume home meds, supposed to use supplemental O2 at baseline. Somnolent this am, CT chest and head pending. (13) DVT prophylaxis Status: Acute Assessment & Plan: Enoxaparin CEE MAURICIO MD Jul 14, 2022 10:13
--- NOTE | 2022-07-14 10:31 | Diagnostic Imaging Report ---
PROCEDURE: CT head without contrast. TECHNIQUE: Multiple contiguous axial images were obtained through the brain without the use of intravenous contrast. Auto Exposure Controls were utilized during the CT exam to meet ALARA standards for radiation dose reduction. INDICATION: 61-year-old hospitalized ICU male, altered mental status, memory loss, frequent falls. CORRELATION: 06/30/2022 FINDINGS: There is unchanged, mildly diffuse atrophic changes with prominence of the ventricles and sulci. There are scattered areas of decreased attenuation, nonspecific but likely changes of chronic small vessel ischemic disease. There is otherwise normal oswald-white differentiation. No abnormal areas of attenuation to suggest edema from ischemia. There is no midline shift or mass effect. Calcified intracranial vasculature without asymmetric hyperdense intracranial vascular sign. No evidence for acute intracranial hemorrhage or abnormal extra-axial fluid collection. Bony calvarium is intact. Continued but decreased severity mucosal thickening and fluid of the right maxillary and frontal sinuses. Mild mucosal thickening of the sphenoid sinus also improved. Mastoid air cells also appear clear. IMPRESSION: 1. No CT evidence for acute intracranial abnormality. 2. Continued but improvement in the severity of sinusitis. Dictated by: Dictated on workstation # [id number]
--- NOTE | 2022-07-14 10:48 | Diagnostic Imaging Report ---
PROCEDURE: CT chest without contrast. TECHNIQUE: Multiple contiguous axial images were obtained through the chest without the use of intravenous contrast. Auto Exposure Controls were utilized during the CT exam to meet ALARA standards for radiation dose reduction. INDICATION: 61-year-old hospitalized ICU patient, abnormal chest x-ray with respiratory failure. CORRELATION STUDY: Chest radiograph from 06/30/2012. FINDINGS: Heart size is upper limits of normal. Rather significant coronary artery calcification. No significant pericardial effusion. Thoracic aortic contour is unremarkable. A few small, predominantly subcentimeter mediastinal lymph nodes are present. Advanced emphysematous change about the lung parenchyma. There is consolidation and air bronchograms in bilateral lower lobes, left greater than right, compatible with pneumonia. This has adversely changed from previous day's study. Trace effusion. Visualized portions of the upper abdomen demonstrate no significant interval change from yesterday's imaging. There is rather prominent asymmetric edema/effusion around the left shoulder. This extends from superior to the acromion and distal clavicle through the shoulder joint into the axillary recess. There is dystrophic calcification along the fluid collection at the more anterior and medial aspect. Additionally, there is some edema about the lateral left chest wall with some generalized asymmetric haziness extending in the inferior axillary recess. IMPRESSION: 1. Bibasilar pneumonia, left greater than right. This is adversely changed from the study of previous evening. Question if there has been potential aspiration. Follow-up imaging until resolution is recommended. 2. Extensive edema in around the left shoulder and chest wall, concerning for potential underlying infectious or inflammatory process. If indicated, consideration might be given to postcontrast imaging for further assessment. Ultimately, aspiration and/or contrast MRI may be required as well. Dictated by: Dictated on workstation # [id number]
[2022-07-14] MEDS ORDERED: CATHETER FLUSH 10 ML SYR IVP PRN (11:00)
[2022-07-14] MEDS: CALC GLUC 1 GM/100 ML IVPB 100 ML IV SCH (11:30)
--- NOTE | 2022-07-14 12:17 | Consultation - Surgery ---
DOMINIQUE VERA 07/14/22 1217: History of Present Illness History of Present Illness Patient Consulted On(eugenio/time) 07/14/22 12:08 Date Seen by Provider: Jul 14, 2022 Time Seen by Provider: 12:08 History of Present Illness Spenser Solis is a 61yo male whom presented to the ED due to altered mental status, vomiting w/ associated nausea. Pt states that he has been constantly vomiting clear liquids w/o food all day and all night which began about three days ago; last vomiting episode yesterday. Pt states that this has occurred before about 2 months ago. Pt denies any associated pain other than chronic back/leg pain; denies aggravating/alleviating factors. Today has been the first day that he has been able to hold down any liquids. CT abdomen and Pelvis w/o constast showed inttermediate gastric wall thickening primarily posterior stomach wall concerning for possible mass which is why Surgery was consulted by [facility]. Allergies and Home Medications Allergies Coded Allergies: No Known Drug Allergies (Unverified , 02/26/22) Patient Home Medication List Levofloxacin (Levofloxacin) 500 Mg Tablet, 500 MG PO DAILY Prescribed by: JIN NORRIS MD on 06/30/22 1405 Magnesium (Magnesium) 250 Mg Tablet, 250 MG PO DAILY Prescribed by: KATHERINE SANCHEZ MD on 02/26/221927 Potassium Chloride (Potassium Chloride) 20 Meq Packet, 20 MEQ PO DAILY Prescribed by: KATHERINE SANCHEZ MD on 02/26/221927 Past Zrcvtae-Ptbeif-Sqgyuf Hx Patient Social History Smoking Status: Current Everyday Smoker (2ppd) Alcohol Use?: No Have you traveled recently?: No Surgeries Surgeries: Coronary Stent Respiratory Respiratory Disorders: COPD Cardiovascular Cardiac Disorders: Coronary Artery Disease, High Cholesterol, Hypertension Endocrine Endocrine Disorders: Diabetes, Insulin dep Review of Systems-General Constitutional: No chills, No fever Respiratory: No cough; short of breath Cardiovascular: No chest pain, No palpitations Gastrointestinal: No abdominal pain, No constipation, No diarrhea, No nausea, No vomiting Genitourinary: No dysuria, No frequency Musculoskeletal: No muscle stiffness, No muscle cramps Psychiatric/Neurological: Numbness, Paresthesia, Tingling Physical Exam-General Problems Physical Exam Vital Signs Vital Signs - First Documented 07/13/22 18:54 Temp 36.9 Pulse 96 Resp 20 B/P (MAP) 147/74 (98) Pulse Ox 98 O2 Delivery Nasal Cannula O2 Flow Rate 3.00 Capillary Refill : Less Than 3 Seconds General Appearance: no apparent distress HEENT: pharynx normal Neck: non-tender, supple Respiratory: lungs clear, no accessory muscle use, decreased breath sounds Cardiovascular: regular rate, rhythm, no edema Peripheral Pulses: 2+ Radial Pulses (R), 2+ Radial Pulses (L) Gastrointestinal: normal bowel sounds, non tender, soft Extremities: normal range of motion, pedal edema Neurologic/Psychiatric: alert, normal mood/affect, oriented x 3 Skin: warm/dry, rash (B/ Lower Extremity ) Lymphatic: no adenopathy Data Review Labs Laboratory Tests 07/13/22 19:00: White Blood Count 13.3H, Red Blood Count 4.66, Hemoglobin 14.4, Hematocrit 41, Mean Corpuscular Volume 89, Mean Corpuscular Hemoglobin 31, Mean Corpuscular Hemoglobin Concent 35, Red Cell Distribution Width 13.4, Platelet Count 270, Mean Platelet Volume 9.3, Immature Granulocyte % (Auto) 0, Neutrophils (%) ( Auto) 84H, Lymphocytes (%) (Auto) 10L, Monocytes (%) (Auto) 6, Eosinophils (%) (Auto) 0, Basophils (%) (Auto) 0, Neutrophils # (Auto) 11.1H, Lymphocytes # (Auto) 1.3, Monocytes # (Auto) 0.8, Eosinophils # (Auto) 0.0, Basophils # (Auto) 0.0, Immature Granulocyte # (Auto) 0.1, Sodium Level 138, Potassium Level 2.5*L, Chloride Level 89L, Carbon Dioxide Level 37H, Anion Gap 12, Blood Urea Nitrogen 14, Creatinine 0.56L, Estimat Glomerular Filtration Rate 112, BUN/Creatinine Ratio 25, Glucose Level 157H, Calcium Level 6.4L, Corrected Calcium 6.8L, Total Bilirubin 1.0, Aspartate Amino Transf (AST/SGOT) 28, Alanine Aminotransferase (ALT/SGPT) 15, Alkaline Phosphatase 150H, Total Protein 6.9, Albumin 3.5, Lipase 18 07/14/22 04:21: White Blood Count 12.9H, Red Blood Count 4.21L, Hemoglobin 13.1L, Hematocrit 38L , Mean Corpuscular Volume 90, Mean Corpuscular Hemoglobin 31, Mean Corpuscular Hemoglobin Concent 35, Red Cell Distribution Width 13.2, Platelet Count 263, Mean Platelet Volume 9.6, Immature Granulocyte % (Auto) 1, Neutrophils (%) (Auto) 73, Lymphocytes (%) (Auto) 20, Monocytes (%) (Auto) 7, Eosinophils (%) (Auto) 0, Basophils (%) (Auto) 0, Neutrophils # (Auto) 9.3H, Lymphocytes # (Auto) 2.6, Monocytes # (Auto) 0.9, Eosinophils # (Auto) 0.0, Basophils # (Auto) 0.0, Immature Granulocyte # (Auto) 0.1, Sodium Level 142, Potassium Level 2.5*L, Chloride Level 99, Carbon Dioxide Level 31, Anion Gap 12, Blood Urea Nitrogen 11, Creatinine 0.57L, Estimat Glomerular Filtration Rate 112, BUN/Creatinine Ratio 19, Glucose Level 104, Calcium Level 5.9*L, Corrected Calcium 6.9L, Total Bilirubin 1.2H, Aspartate Amino Transf (AST/SGOT) 38H, Alanine Aminotransferase (ALT/SGPT) 18, Alkaline Phosphatase 101, Total Protein 5.5L, Albumin 2.8L, Phosphorus Level 2.8, Magnesium Level < 0.6*L 07/14/22 09:25: Blood Gas Puncture Site RR, Blood Gas Patient Temperature 37.4, Arterial Blood pH 7.44H, Arterial Blood Partial Pressure CO2 52H, Arterial Blood Partial Pressure O2 65L, Arterial Blood HCO3 35H, Arterial Blood Total CO2 36.5H, Arterial Blood Oxygen Saturation 93L, Arterial Blood Base Excess 10.4H, Raoul Test YES-POS, Blood Gas Ventilator Setting NO, Blood Gas Inspired Oxygen 5L Radiology CT ABDOMEN/PELVIS WO PROCEDURE: CT abdomen and pelvis without contrast. TECHNIQUE: Multiple contiguous axial images were obtained through the abdomen and pelvis without the use of intravenous contrast. Auto Exposure Controls were utilized during the CT exam to meet ALARA standards for radiation dose reduction. INDICATION: Nausea and vomiting x 3 days. COMPARISON: None. FINDINGS: Emphysematous changes in the lung bases. Airspace consolidation in the left lung base. Indeterminate gastric wall thickening primarily involving the posterior wall of the stomach. The liver, gallbladder, pancreas, spleen, adrenals, kidneys, collecting systems and bladder are negative on this noncontrast exam. Infrarenal abdominal aortic aneurysm measuring up to 5.6 cm in diameter. There is also ectasia of the bilateral common iliac arteries measuring up to 1.8 cm on the right and 2.1 cm on the left. No free intraperitoneal air or fluid. No lymphadenopathy. No evidence of appendicitis. No evidence of bowel obstruction. Fat-containing umbilical hernia with a wide base measuring approximately 2.7 cm. The herniated fat measures approximately 8 x 5 cm. No suspicious inflammatory change or fluid within the hernia. Partially visualized right hydrocele. No acute osseous finding. IMPRESSION: 1. Indeterminate gastric wall thickening primarily involving the posterior wall of the stomach. Findings could be due to gastritis versus a mass. Recommend endoscopy. 2. Infrarenal abdominal aortic aneurysm measures up to 5.6 cm in diameter. 3. Airspace consolidation in the left lung base suspicious for pneumonitis. 4. Partially visualized right hydrocele. 5. Fat-containing umbilical hernia, as above. Date of Exam:07/14/22 CT CHEST WO PROCEDURE: CT chest without contrast. TECHNIQUE: Multiple contiguous axial images were obtained through the chest without the use of intravenous contrast. Auto Exposure Controls were utilized during the CT exam to meet ALARA standards for radiation dose reduction. INDICATION: 61-year-old hospitalized ICU patient, abnormal chest x-ray with respiratory failure. CORRELATION STUDY: Chest radiograph from 06/30/2012. FINDINGS: Heart size is upper limits of normal. Rather significant coronary artery calcification. No significant pericardial effusion. Thoracic aortic contour is unremarkable. A few small, predominantly subcentimeter mediastinal lymph nodes are present. Advanced emphysematous change about the lung parenchyma. There is consolidation and air bronchograms in bilateral lower lobes, left greater than right, compatible with pneumonia. This has adversely changed from previous day's study. Trace effusion. Visualized portions of the upper abdomen demonstrate no significant interval change from yesterday's imaging. There is rather prominent asymmetric edema/effusion around the left shoulder. This extends from superior to the acromion and distal clavicle through the shoulder joint into the axillary recess. There is dystrophic calcification along the fluid collection at the more anterior and medial aspect. Additionally, there is some edema about the lateral left chest wall with some generalized asymmetric haziness extending in the inferior axillary recess. IMPRESSION: 1. Bibasilar pneumonia, left greater than right. This is adversely changed from the study of previous evening. Question if there has been potential aspiration. Follow-up imaging until resolution is recommended. 2. Extensive edema in around the left shoulder and chest wall, concerning for potential underlying infectious or inflammatory process. If indicated, consideration might be given to postcontrast imaging for further assessment. Ultimately, aspiration and/or contrast MRI may be required as well. Dictated by: Dictated on workstation # [id number] Date of Exam:07/14/22 CT HEAD WO PROCEDURE: CT head without contrast. TECHNIQUE: Multiple contiguous axial images were obtained through the brain without the use of intravenous contrast. Auto Exposure Controls were utilized during the CT exam to meet ALARA standards for radiation dose reduction. INDICATION: 61-year-old hospitalized ICU male, altered mental status, memory loss, frequent falls. CORRELATION: 06/30/2022 FINDINGS: There is unchanged, mildly diffuse atrophic changes with prominence of the ventricles and sulci. There are scattered areas of decreased attenuation, nonspecific but likely changes of chronic small vessel ischemic disease. There is otherwise normal oswald-white differentiation. No abnormal areas of attenuation to suggest edema from ischemia. There is no midline shift or mass effect. Calcified intracranial vasculature without asymmetric hyperdense intracranial vascular sign. No evidence for acute intracranial hemorrhage or abnormal extra-axial fluid collection. Bony calvarium is intact. Continued but decreased severity mucosal thickening and fluid of the right maxillary and frontal sinuses. Mild mucosal thickening of the sphenoid sinus also improved. Mastoid air cells also appear clear. IMPRESSION: 1. No CT evidence for acute intracranial abnormality. 2. Continued but improvement in the severity of sinusitis. Dictated by: Dictated on workstation # [id number] Assessment/Plan Assessment/Plan Assessment/Plan Altered Mental Status Probable Gastric Mass Metabolic Acidosis Hypercapnic and Hypoxic Protein Malnutrition Hypomagnesium Hypokalemia Hypocalcemia EGD NPO Electrolyte Repletion Oxygen as Needed NICOLA ADAMS DO 07/14/22 1547: History of Present Illness History of Present Illness Time Seen by Provider: 15:19 History of Present Illness Surgery asked to consult regarding Gastric Thickening. HPI per ED: 61-year-old male presenting with complaints of nausea vomiting for the last 3 days. EMS reports that the family had wanted him to go to [place] but they were not willing to drive him there. EMS informed them that they could transport him to [facility] or [place] and they opted for [place]. Patient denies having any abdominal pain. He states he has had symptoms like this previously but was never told what was causing it. He has no diarrhea or change in his bowels. He states he feels generally weak. He was feeling better with the IV fluids and the nausea medicine from EMS. He denies any allergies to medications. Timing/Duration: 2-3 Days Severity/Quality: Severe (Repeated episodes of vomiting over the last 3 days but denies any abdominal pain) Modifying Factors: Worsens With Eating Associated Symptoms: No Back Pain, No Chest Pain, No Diaphoresis, No Fever/Chills, No Fatigue, No Headache, No Heartburn; Nausea/Vomiting; No Rash, No Shortness of Air, No Swelling/Mass in Abdomen, No Syncope, No Weakness I was actually called by the ER last night regarding the pt, was told he was going to follow up in my office. When I spoke to him today he was in the ICU, appeared very comfortable. He stated prior to this episode of vomiting, it had never happened to him before. Pt states he used to chew tobacco when he was young, quit drinking about 12 years ago, but still smokes daily. He denies abdominal pain and was telling me something about an appointment at [facility]. However, at first he said appointment was for his stomach, then he said back pain and then he said it was to see Vascular for his aneurysm. Allergies and Home Medications Allergies Coded Allergies: No Known Drug Allergies (Unverified , 02/26/22) Patient Home Medication List Home Medication List Reviewed: Yes Levofloxacin (Levofloxacin) 500 Mg Tablet, 500 MG PO DAILY Prescribed by: JIN NORRIS MD on 06/30/22 1405 Magnesium (Magnesium) 250 Mg Tablet, 250 MG PO DAILY Prescribed by: KATHERINE SANCHEZ MD on 02/26/221927 Potassium Chloride (Potassium Chloride) 20 Meq Packet, 20 MEQ PO DAILY Prescribed by: KATHERINE SANCHEZ MD on 02/26/221927 Past Gcpfudc-Dpjocu-Prkpto Hx Patient Social History Smoking Status: Current Everyday Smoker (2ppd) Alcohol Use?: No Surgeries History of Surgeries: Yes Surgeries: Coronary Stent Respiratory History of Respiratory Disorde: Yes Respiratory Disorders: COPD Cardiovascular History of Cardiac Disorders: Yes Cardiac Disorders: Aneurysm, Coronary Artery Disease, High Cholesterol, Hypertension Neurological History of Neurological Disord: Yes Neurological Disorders: Neuropathy Reproductive System Hx Reproductive Disorders: No Genitourinary History of Genitourinary Disor: Yes Genitourinary Disorders: Benign Prostatic Hyperpl Gastrointestinal History of Gastrointestinal Di: Yes Gastrointestinal Disorders: Gastroesophageal Reflux Musculoskeletal History of Musculoskeletal Dis: Yes Musculoskeletal Disorders: Arthritis, Chronic Back Pain Endocrine History of Endocrine Disorders: Yes Endocrine Disorders: Diabetes, Insulin dep HEENT History of HEENT Disorders: No Hearing Impairment: Hard of Hearing Cancer History of Cancer: No Psychosocial History of Psychiatric Problem: Yes Behavioral Health Disorders: Depression Integumentary History of Skin or Integumenta: No Blood Transfusions History of Blood Disorders: No Family Medical History Significant Family History: Heart Disease, Cancer (Father had pancreatic CA) Review of Systems-General Constitutional: No chills, No fever EENTM: No blurred vision, No mouth swelling, No epistaxis Respiratory: No cough; short of breath Cardiovascular: No chest pain; Hx of Intervention; No palpitations Gastrointestinal: No abdominal pain, No constipation, No diarrhea; nausea, vomiting Genitourinary: No dysuria, No frequency Musculoskeletal: back pain, joint pain, joint swelling Skin: No change in color, No change in hair/nails Psychiatric/Neurological: Numbness, Paresthesia, Tingling Physical Exam-General Problems Physical Exam General Appearance: WD/WN, no apparent distress Eyes: Bilateral Eye PERRL, Bilateral Eye EOMI HEENT: pharynx normal; No scleral icterus (R), No scleral icterus (L) Neck: non-tender, supple Respiratory: lungs clear, no respiratory distress, no accessory muscle use, decreased breath sounds Cardiovascular: regular rate, rhythm, no edema, no murmur Gastrointestinal: normal bowel sounds, non tender, soft, no organomegaly, hernia (large incarcerated umbilical hernia), other (Pulsatile mass - mid abd) Back: no CVA tenderness, no vertebral tenderness Extremities: no calf tenderness, pedal edema Neurologic/Psychiatric: alert, normal mood/affect, oriented x 3 Skin: warm/dry, rash (B/ Lower Extremity ) Lymphatic: no adenopathy (neck, axilla or groin) Assessment/Plan Assessment/Plan Assessment/Plan Intractable Nausea and Vomiting - resolved Hypokalemia and Hypomagnesemia - secondary to above Abdominal Aortic Aneurysm Altered Mental Status - improved Gastric wall thickening - r/o Mass Metabolic Acidosis Hypercapnic and Hypoxic Protein Malnutrition Plan is IV fluids, electrolyte replacement, EGD, clears today and NPO after MN. Will need to maintain his BP, do not want it running high with the AAA. I talked with pt and his son; regarding EGD and possible biopsy. Risks and co mplications discussed, not limited to pain, bleeding, infection, esophageal rupture and even gastric perforation. All questions answered to their satisfaction. Will plan on EGD tomorrow (will get consent) as long as it is ok with Anesthesia, if he needs more electrolytes can plan on Thursday. Pt is currently getting Potassium and Magnesium replaced. Supervisory-Addendum Brief Verification & Attestation Participated in pt care: history, MDM, physical Personally performed: exam, history, MDM, supervision of care Care discussed with: Medical Student Procedures: n/a Verification and Attestation of Medical Student E/M Service A medical student performed and documented this service. I then reviewed and verified all information documented by the medical student and made modifications to such information, when appropriate. I personally performed a physical exam, medical decision making and then discussed any differences between the notes and made revisions as necessary to create one note. Nicola Adams , 07/14/22 , 16:02 DOMINIQUE VERA Jul 14, 2022 12:17 NICOLA ADAMS DO Jul 14, 2022 15:47
[2022-07-14] MEDS ORDERED: VANCOMYCIN INJECTION 0.1 MG in NS (IVPB) 250 ML IV SCH (13:15)
[2022-07-14] MEDS ORDERED: PIPERACILLIN SODIUM/TAZOBACTAM 4.5 GM in NS (IVPB) 100 ML IV NR (13:30)
[2022-07-14 13:36] LABS: POTASSIUM 2.7 MMOL/L (3.6-5.0)
[2022-07-14 13:37] LABS: CALCIUM 6.3 MG/DL (8.5-10.1)
[2022-07-14 13:41] LABS: CREATININE SERUM 0.6 MG/DL (0.60-1.30); PHOSPHORUS 2.2 MG/DL (2.3-4.7)
[2022-07-14 13:44] LABS: MAGNESIUM 1.6 MG/DL (1.6-2.4)
[2022-07-14] MEDS ORDERED: VANCOMYCIN 1,750 MG/NS 500 ML IVPB IV ONE ×2 (15:00)
[2022-07-14] MEDS ORDERED: KCL 20 MEQ TAB (K-DUR) PO NR ×2 (15:00→17:00)
[2022-07-14] MEDS: ENOXAPARIN 40 MG/0.4 ML (LOVENOX) SYR SQ SCH (15:24)
[2022-07-14] MEDS: PIPERACILLIN SODIUM/TAZOBACTAM 4.5 GM in NS (IVPB) 100 ML IV SCH (20:11)
[2022-07-14 20:31] LABS: CALCIUM 6.3 MG/DL (8.5-10.1); CREATININE SERUM 0.61 MG/DL (0.60-1.30); POTASSIUM 2.7 MMOL/L (3.6-5.0)
[2022-07-14] MEDS ORDERED: KCL 20 MEQ TAB (K-DUR) PO ONE (21:08)
[2022-07-14] MEDS ORDERED: POTASSIUM CL 10MEQ/50ML IVPB 400 ML IV ONE (21:09)
[2022-07-14] MEDS: KCL 20 MEQ TAB (K-DUR) PO SCH (21:10)
[2022-07-14] MEDS ORDERED: NS IV 500 ML 500 ML IV PRN (23:45)
[2022-07-15] VITALS (20 sets, daily range): BP systolic 107–163; BP diastolic 61–93
[2022-07-15] MEDS: inSUlin ASPART (NovoLOG) 1 UNIT/0.01 ML (CHARGE PER UNIT) SC SCH ×5 (00:03→22:34)
[2022-07-15] MEDS: POTASSIUM CL 10MEQ/50ML IVPB 50 ML IV SCH ×5 (00:04→04:04)
[2022-07-15] MEDS ORDERED: PREGABALIN 150 MG (LYRICA) CAPSULE ONE (00:27)
[2022-07-15] MEDS: PREGABALIN 150 MG (LYRICA) CAPSULE PO SCH ×3 (00:28→20:43)
[2022-07-15] MEDS: KCL 20 MEQ TAB (K-DUR) PO SCH (00:29)
[2022-07-15] MEDS: PIPERACILLIN SODIUM/TAZOBACTAM 4.5 GM in NS (IVPB) 100 ML IV SCH ×3 (03:05→20:41)
[2022-07-15] MEDS: VANCOMYCIN 1500MG/300ML PREMIX IV SCH ×2 (05:08→17:09)
[2022-07-15] MEDS: NS IV 1000 ML 1,000 ML IV SCH ×2 (05:11→16:18)
[2022-07-15 05:35] LABS: BASOPHILS % (AUTO) 0 % (0-10); EOSINOPHILS # (AUTO) 0.2 10^3/uL (0.0-0.3); EOSINOPHILS % (AUTO) 2 % (0-10); HEMATOCRIT 38 % (40-54); LYMPHOCYTES # (AUTO) 2.1 10^3/uL (1.0-4.0); LYMPHOCYTES % (AUTO) 20 % (12-44); MEAN CORPUSCULAR HEMOGLOBIN 31 pg (25-34); MEAN CORPUSCULAR HGB CONC 34 g/dL (32-36); MEAN CORPUSCULAR VOLUME 90 fL (80-99); MEAN PLATELET VOLUME 9.3 fL (9.0-12.2); MONOCYTES # (AUTO) 0.7 10^3/uL (0.0-1.0); MONOCYTES % (AUTO) 6 % (0-12); NEUTROPHILS # (AUTO) 7.6 10^3/uL (1.8-7.8); NEUTROPHILS % (AUTO) 71 % (42-75); PLATELET COUNT 218 10^3/uL (130-400); WHITE BLOOD COUNT 10.7 10^3/uL (4.3-11.0)
[2022-07-15 05:52] LABS: CALCIUM 6.5 MG/DL (8.5-10.1); CREATININE SERUM 0.56 MG/DL (0.60-1.30); MAGNESIUM 1.9 MG/DL (1.6-2.4); POTASSIUM 4.3 MMOL/L (3.6-5.0)
[2022-07-15] MEDS ORDERED: KCL 20 MEQ TAB (K-DUR) PO SCH (06:00)
[2022-07-15] MEDS ORDERED: POTASSIUM CL 10MEQ/50ML IVPB 50 ML IV SCH (06:00)
[2022-07-15] MEDS ORDERED: MAGNESIUM 1 GM/100 ML IVPB 100 ML IV SCH (06:00)
[2022-07-15] MEDS: MAGNESIUM 1 GM/100 ML IVPB 100 ML IV SCH ×2 (06:15→08:19)
[2022-07-15] MEDS ORDERED: DAPA10TA PO (07:30)
[2022-07-15] MEDS ORDERED: BUPR-42 PO (07:30)
[2022-07-15] MEDS ORDERED: ATOR80TA76 PO (07:30)
[2022-07-15] MEDS ORDERED: INSU100I55 SQ (07:30)
[2022-07-15] MEDS ORDERED: LIRA0.6P3 SQ (07:30)
[2022-07-15] MEDS ORDERED: ISOS30TA82 PO (07:30)
[2022-07-15] MEDS ORDERED: PANT40TA52 PO (07:30)
[2022-07-15] MEDS ORDERED: AMIT50TA3 PO (07:30)
[2022-07-15] MEDS ORDERED: NEBI10TA11 PO (07:30)
[2022-07-15] MEDS ORDERED: BUME1TAB8 PO (07:30)
[2022-07-15] MEDS ORDERED: DESV100T16 PO (07:30)
[2022-07-15] MEDS ORDERED: MAGN400T7 PO (07:30)
[2022-07-15] MEDS ORDERED: HYDR-3820 PO (07:30)
[2022-07-15] MEDS ORDERED: LISI10TA25 PO (07:30)
[2022-07-15] MEDS ORDERED: INSU100I76 SQ (07:30)
[2022-07-15] MEDS ORDERED: PREG150C46 PO (07:30)
[2022-07-15] MEDS ORDERED: CYCL10TA25 PO (07:30)
[2022-07-15] MEDS ORDERED: DRON10CA5 PO (07:30)
[2022-07-15] MEDS ORDERED: ARIP20TA20 PO (07:30)
[2022-07-15] MEDS ORDERED: ASPI-999 PO (07:30)
[2022-07-15] MEDS: ISOSORBIDE MONONITRATE 30 MG (IMDUR) TAB PO SCH (08:26)
[2022-07-15] MEDS: PANTOPRAZOLE 40 MG (PROTONIX) VIAL IV SCH ×2 (08:26→20:44)
[2022-07-15] MEDS ORDERED: lisINopril 10 MG (PRINIVIL) TABLET PO SCH (09:00)
[2022-07-15] MEDS ORDERED: NEBIVOLOL HCL 20 MG PO SCH (09:00)
--- NOTE | 2022-07-15 09:11 | Progress Note - Surgery ---
ALFONZO LIVE 07/15/22 0911: Subjective Subjective/Events-last exam 61 yo male admitted on 07/14 from the ED after CT showed intermediate gastric wall thickening concerning for possible mass and abdominal aortic aneurysm. Per other notes, he presented to the ED with altered mental status after 3 days of vomiting associated with nausea. He notes that symptoms of this nature occurred once before roughly 2 months ago. He denies any potential inciting factors to either episode. At this time he denies abdominal pain, N/V/D, chills, or pain otherwise. He states his last BM was roughly 1 week ago. He denies chest pain or SOB.. Review of Systems General: No Chills, No Fatigue HEENT: No Head Aches, No Visual Changes Pulmonary: No Dyspnea, No Cough Cardiovascular: No: Chest Pain, Palpitations Gastrointestinal: Constipation; No: Nausea, Vomiting, Abdominal Pain, Diarrhea Genitourinary: No Dysuria, No Frequency Musculoskeletal: No: leg pain, foot pain Neurological: No: Weakness, Numbness Objective Exam Vital Signs Date Time Temp Pulse Resp B/P (MAP) Pulse Ox O2 Delivery O2 Flow Rate FiO2 07/15/22 08:00 71 11 144/80 (101) 97 Nasal Cannula 3.00 07/15/22 07:42 65 07/15/22 07:12 99 Nasal Cannula 5.00 07/15/22 07:00 64 14 159/93 (115) 97 Nasal Cannula 3.00 07/15/22 06:00 68 16 161/92 (115) 100 Nasal Cannula 3.00 07/15/22 05:00 75 15 135/76 (95) 96 Nasal Cannula 3.00 07/15/22 04:00 75 18 148/70 (96) 98 Nasal Cannula 3.00 07/15/22 03:05 98 Nasal Cannula 3.00 07/15/22 03:05 36.5 68 20 156/86 (109) 98 Nasal Cannula 3.00 07/15/22 03:00 66 19 156/86 (112) 98 Nasal Cannula 3.00 07/15/22 02:00 68 19 163/82 (110) 98 Nasal Cannula 3.00 07/15/22 01:00 77 28 138/73 (101) 96 Nasal Cannula 3.00 07/15/22 01:00 77 07/15/22 00:00 80 30 131/76 (103) 95 Nasal Cannula 3.00 07/14/22 23:15 94 Nasal Cannula 3.00 07/14/22 23:00 37.1 83 21 147/81 (103) 94 Nasal Cannula 3.00 07/14/22 22:00 79 16 136/78 (105) 96 Nasal Cannula 3.00 07/14/22 21:00 83 20 133/83 (100) 95 Nasal Cannula 3.00 07/14/22 20:00 95 Nasal Cannula 4.00 07/14/22 20:00 82 20 124/81 (95) 95 Nasal Cannula 4.00 07/14/22 19:55 37.0 Nasal Cannula 4.00 07/14/22 19:10 36.6 07/14/22 19:00 80 07/14/22 19:00 Nasal Cannula 5.00 07/14/22 19:00 80 18 148/81 (106) 94 Nasal Cannula 5.00 07/14/22 18:19 97 Nasal Cannula 5.00 07/14/22 18:00 76 22 151/79 (103) 95 Nasal Cannula 5.00 07/14/22 17:00 78 22 152/79 (103) 96 Nasal Cannula 5.00 07/14/22 16:00 79 26 139/80 (99) 94 Nasal Cannula 5.00 07/14/22 15:15 86 16 142/76 (98) 95 Nasal Cannula 5.00 07/14/22 15:00 36.5 07/14/22 13:00 82 29 133/72 (92) 94 Nasal Cannula 5.00 07/14/22 12:23 83 07/14/22 12:00 84 23 140/76 (97) 94 Nasal Cannula 5.00 07/14/22 12:00 36.9 07/14/22 11:00 83 23 136/74 (94) 94 Nasal Cannula 5.00 07/14/22 10:00 87 19 134/63 (86) 95 Nasal Cannula 5.00 I & O 07/15/22 07:00 Intake Total 5115 ml Output Total 4425 ml Balance 690 ml Capillary Refill : Less Than 3 Seconds General Appearance: Chronically ill, Moderate Distress Respiratory: Normal Breath Sounds, No Accessory Muscle Use Cardiovascular: Regular Rate, Rhythm, No Murmur Peripheral Pulses: 2+ Radial Pulses (R), 2+ Radial Pulses (L) Gastrointestinal: normal bowel sounds, non tender, soft, no organomegaly, hernia (large incarcerated umbilical hernia), other (Pulsatile mass - mid abd) Extremity: No Calf Tenderness, No Pedal Edema Neurologic/Psychiatric: Alert, Disoriented Skin: Ecchymosis Lymphatic: No Adenopathy Results Lab Laboratory Tests 07/14/22 09:25: Blood Gas Puncture Site RR, Blood Gas Patient Temperature 37.4, Arterial Blood pH 7.44H, Arterial Blood Partial Pressure CO2 52H, Arterial Blood Partial Pressure O2 65L, Arterial Blood HCO3 35H, Arterial Blood Total CO2 36.5H, Arterial Blood Oxygen Saturation 93L, Arterial Blood Base Excess 10.4H, Raoul Test YES-POS, Blood Gas Ventilator Setting NO, Blood Gas Inspired Oxygen 5L 07/14/22 13:15: Sodium Level 137, Potassium Level 2.7L, Chloride Level 98, Carbon Dioxide Level 26, Anion Gap 13, Blood Urea Nitrogen 9, Creatinine 0.60, Estimat Glomerular Filtration Rate 110, BUN/Creatinine Ratio 15, Glucose Level 197H, Calcium Level 6.3L, Phosphorus Level 2.2L, Magnesium Level 1.6 07/14/22 19:55: Sodium Level 139, Potassium Level 2.7L, Chloride Level 101, Carbon Dioxide Level 27, Anion Gap 11, Blood Urea Nitrogen 6L, Creatinine 0.61, Estimat Glomerular Filtration Rate 109, BUN/Creatinine Ratio 10, Glucose Level 183H, Calcium Level 6.3L, Magnesium Level 2.0 07/14/22 23:33: Glucometer 110 07/15/22 05:28: Glucometer 107 07/15/22 05:29: White Blood Count 10.7, Red Blood Count 4.19L, Hemoglobin 13.0L, Hematocrit 38L, Mean Corpuscular Volume 90, Mean Corpuscular Hemoglobin 31, Mean Corpuscular Hemoglobin Concent 34, Red Cell Distribution Width 12.9, Platelet Count 218, Mean Platelet Volume 9.3, Immature Granulocyte % (Auto) 1, Neutrophils (%) (A uto) 71, Lymphocytes (%) (Auto) 20, Monocytes (%) (Auto) 6, Eosinophils (%) (Auto) 2, Basophils (%) (Auto) 0, Neutrophils # (Auto) 7.6, Lymphocytes # (Auto) 2.1, Monocytes # (Auto) 0.7, Eosinophils # (Auto) 0.2, Basophils # (Auto) 0.0, Immature Granulocyte # (Auto) 0.1, Sodium Level 138, Potassium Level 4.3, Chloride Level 105, Carbon Dioxide Level 26, Anion Gap 7, Blood Urea Nitrogen 5L , Creatinine 0.56L, Estimat Glomerular Filtration Rate 112, BUN/Creatinine Ratio 9, Glucose Level 109H, Calcium Level 6.5L, Phosphorus Level 2.0L, Magnesium Level 1.9 Assessment/Plan Assessment/Plan Assessment/Plan Intractable nausea and vomiting - resolved at this time Hypokalemia, hypomagnesemia, hypocalcemia - secondary to vomiting Probable Gastric Mass - EGD scheduled for 07/15 Abdominal aortic aneurysm (5.6 cm) Hypercapnia and Hypoxia Metabolic acidosis Protein Malnutrition EGD NPO Electrolyte Repletion Oxygen as Needed PATRICK TRACY DO 07/15/22 1426: Subjective Time Seen by a Provider: 11:09 Subjective/Events-last exam Pt seen and examined, no complaints. Pt states he is not doing an EGD, "I don't need it, cause I have no pain or problems". All he wants, he stated, was coffee. Review of Systems General: No Chills HEENT: No Head Aches Pulmonary: No Dyspnea, No Cough Cardiovascular: No: Chest Pain, Palpitations Gastrointestinal: Constipation; No: Nausea, Vomiting, Abdominal Pain Objective Exam General Appearance: No Apparent Distress, Chronically ill HEENT: Moist Mucous Membranes Respiratory: Normal Breath Sounds, No Accessory Muscle Use, No Respiratory Distress Cardiovascular: Regular Rate, Rhythm, No Murmur Gastrointestinal: non tender, soft, no organomegaly, hernia (large incarcerated umbilical hernia), other (Pulsatile mass - mid abd) Assessment/Plan Assessment/Plan Assessment/Plan Intractable nausea and vomiting - resolved at this time Hypokalemia, hypomagnesemia, hypocalcemia - secondary to vomiting Possible Gastric Mass - pt refusing EGD Abdominal aortic aneurysm (5.6 cm) Hypercapnia and Hypoxia Metabolic acidosis Protein Malnutrition OK to start pt on diet Continue Electrolyte Repletion Oxygen as Needed Supervisory-Addendum Brief Verification & Attestation Participated in pt care: history, MDM, physical Personally performed: exam, history, MDM, supervision of care Care discussed with: Medical Student Procedures: n/a Verification and Attestation of Medical Student E/M Service A medical student performed and documented this service. I then reviewed and verified all information documented by the medical student and made modifications to such information, when appropriate. I personally performed a physical exam, medical decision making and then discussed any differences between the notes and made revisions as necessary to create one note. Patrick Tracy , 07/15/22 , 14:25 ALFONZO LIVE Jul 15, 2022 09:11 PATRICK TRACY DO Jul 15, 2022 14:26
[2022-07-15] MEDS ORDERED: SODIUM PHOSPHATE INJ 30 MM in NS (IVPB) 250 ML INJ ONE (10:00)
[2022-07-15] MEDS ORDERED: ERGO1250 PO (12:25)
[2022-07-15] MEDS ORDERED: LISI20TA26 PO (12:25)
[2022-07-15] MEDS ORDERED: ALBU18HF2 INH (12:25)
--- NOTE | 2022-07-15 13:38 | Tele-ICU Progress Note ---
Subjective Date Seen by a Provider: Jul 15, 2022 Time Seen by a Provider: 13:37 Subjective/Events-last exam (Tele-ICU Physician , Progress Note ) Service provided via interactive audio and video telecommunications E-CARE system to a patient admitted to ICU bed in [facility]. Patient is seen today due to persistent need of ICU care Available chart/ vitals / labs / Images reviewed Video assessment done using teleICU camera, rest of exam as per RN Discussed with RN Events overnight : Afebrile hemodynamically stable Respiratory - 3 l I/O = Drips: Pressors- no Hospital course: 07/13: 61 y/o male preseneted to the ED with 2-3 day h/o N/V. Admitted with hypokalemia, hypocalcemia, acute gastritis. A/P inttermediate gastric wall thickening primarily posterior stomach wall nicola rning for possible mass - as per RN - patient discussed with Sx and PCP , refused EGD or any w/up at present time Abdominal aortic aneurysm without rupture and has been a chronic Bilateral pneumonia basilar question of aspiration is raised. - randi mcnally Altered mental status most likely due to sepsis and pneumonia - CT WNL Acute hypoxic respiratory failure secondary to pneumonia and possibly underlying COPD - baseline Chronic tobacco abuse disorder DM II - ISS s/p falls - CTH neg 07/14 Lines : periph , (Central Line Necessity Reviewed) Mancini: OG: Nutrition: Analgesia: Anxiety/ delirium VTE Prophylaxis: kathleen 40 Stress Ulcer Prophylaxis: Plans in collaboration with bedside consultants and IM MDs. Discussed with RN to reach out if any questions or concerns A total of 31 minutes of critical care time was devoted to this patient today, required to treat and/or prevent further deterioration of critical care condition ( as above ) . I am remotely monitoring this patient from another state. I am unable to do the bedside exam, and history/physical and pertinent information is taken from other notes in the computer and bedside staff. Sepsis Event Evaluation Height, Weight, BMI Height: '" Weight: lbs. oz. kg; 30.72 BMI Method: Exam Exam Patient acknowledged, consented, and participated in this virtual visit which was conducted using real time audio/video Vital Signs Date Time Temp Pulse Resp B/P (MAP) Pulse Ox O2 Delivery O2 Flow Rate FiO2 07/15/22 12:56 74 2/28/23 12:00 65 17 116/72 (87) 94 Nasal Cannula 3.00 07/15/22 12:00 92 Nasal Cannula 3.00 07/15/22 11:00 75 20 120/67 (84) 93 Nasal Cannula 3.00 07/15/22 10:00 63 15 128/69 (88) 97 Nasal Cannula 3.00 07/15/22 09:00 70 16 139/75 (96) 95 Nasal Cannula 3.00 07/15/22 08:00 92 Nasal Cannula 3.00 07/15/22 08:00 71 11 144/80 (101) 97 Nasal Cannula 3.00 07/15/22 07:42 65 07/15/22 07:12 99 Nasal Cannula 5.00 07/15/22 07:00 64 14 159/93 (115) 97 Nasal Cannula 3.00 07/15/22 06:00 68 16 161/92 (115) 100 Nasal Cannula 3.00 07/15/22 05:00 75 15 135/76 (95) 96 Nasal Cannula 3.00 07/15/22 04:00 75 18 148/70 (96) 98 Nasal Cannula 3.00 07/15/22 03:05 98 Nasal Cannula 3.00 07/15/22 03:05 36.5 68 20 156/86 (109) 98 Nasal Cannula 3.00 07/15/22 03:00 66 19 156/86 (112) 98 Nasal Cannula 3.00 07/15/22 02:00 68 19 163/82 (110) 98 Nasal Cannula 3.00 07/15/22 01:00 77 28 138/73 (101) 96 Nasal Cannula 3.00 07/15/22 01:00 77 07/15/22 00:00 80 30 131/76 (103) 95 Nasal Cannula 3.00 07/14/22 23:15 94 Nasal Cannula 3.00 07/14/22 23:00 37.1 83 21 147/81 (103) 94 Nasal Cannula 3.00 07/14/22 22:00 79 16 136/78 (105) 96 Nasal Cannula 3.00 07/14/22 21:00 83 20 133/83 (100) 95 Nasal Cannula 3.00 07/14/22 20:00 95 Nasal Cannula 4.00 07/14/22 20:00 82 20 124/81 (95) 95 Nasal Cannula 4.00 07/14/22 19:55 37.0 Nasal Cannula 4.00 07/14/22 19:10 36.6 07/14/22 19:00 80 07/14/22 19:00 Nasal Cannula 5.00 07/14/22 19:00 80 18 148/81 (106) 94 Nasal Cannula 5.00 07/14/22 18:19 97 Nasal Cannula 5.00 07/14/22 18:00 76 22 151/79 (103) 95 Nasal Cannula 5.00 07/14/22 17:00 78 22 152/79 (103) 96 Nasal Cannula 5.00 07/14/22 16:00 79 26 139/80 (99) 94 Nasal Cannula 5.00 07/14/22 15:15 86 16 142/76 (98) 95 Nasal Cannula 5.00 07/14/22 15:00 36.5 I & O 07/15/22 07:00 Intake Total 5115 ml Output Total 4425 ml Balance 690 ml Height & Weight Height: '" Weight: lbs. oz. kg; 30.72 BMI Method: General Appearance: Chronically ill, Moderate Distress Respiratory: Normal Breath Sounds, No Accessory Muscle Use Cardiovascular: Regular Rate, Rhythm, No Murmur Capillary Refill: Less Than 3 Seconds Peripheral Pulses: 2+ Radial Pulses (R), 2+ Radial Pulses (L) Gastrointestinal: normal bowel sounds, non tender, soft, no organomegaly, hernia (large incarcerated umbilical hernia), other (Pulsatile mass - mid abd) Extremity: No Calf Tenderness, No Pedal Edema Neurologic/Psychiatric: Alert, Disoriented Skin: Ecchymosis Lymphatic: No Adenopathy Results Lab Laboratory Tests 07/13/22 19:00 07/14/22 04:21 07/14/22 13:15 07/14/22 19:55 07/15/22 05:29 Assessment/Plan Assessment/Plan (Tele-ICU Physician , Progress Note ) Service provided via interactive audio and video telecommunications E-CARE system to a patient admitted to ICU bed in [facility]. Patient is seen today due to persistent need of ICU care Available chart/ vitals / labs / Images reviewed Video assessment done using teleICU camera, rest of exam as per RN Discussed with RN Events overnight : Afebrile hemodynamically stable Respiratory - 3 l I/O = Drips: Pressors- no Hospital course: 07/13: 61 y/o male preseneted to the ED with 2-3 day h/o N/V. Admitted with hypokalemia, hypocalcemia, acute gastritis. A/P inttermediate gastric wall thickening primarily posterior stomach wall concerning for possible mass - as per RN - patient discussed with Sx and PCP , refused EGD or any w/up at present time Abdominal aortic aneurysm without rupture and has been a chronic Bilateral pneumonia basilar question of aspiration is raised. - randi mcnally Altered mental status most likely due to sepsis and pneumonia - CT WNL Acute hypoxic respiratory failure secondary to pneumonia and possibly underlying COPD - baseline Chronic tobacco abuse disorder DM II - ISS s/p falls - CTH neg 07/14 Lines : periph , (Central Line Necessity Reviewed) Mancini: OG: Nutrition: Analgesia: Anxiety/ delirium VTE Prophylaxis: kathleen 40 Stress Ulcer Prophylaxis: Plans in collaboration with bedside consultants and IM MDs. Discussed with RN to reach out if any questions or concerns A total of 31 minutes of critical care time was devoted to this patient today, required to treat and/or prevent further deterioration of critical care condition ( as above ) . I am remotely monitoring this patient from another state. I am unable to do the bedside exam, and history/physical and pertinent information is taken from other notes in the computer and bedside staff. BLADE COLE MD Jul 15, 2022 13:38
--- NOTE | 2022-07-15 13:49 | Physical Therapy Evaluation ---
PT Evaluation-General Medical Diagnosis Admission Date Jul 14, 2022 at 11:08 Medical Diagnosis: Severe electrolyte distrubances, hypoxia Onset Date: Jul 13, 2022 Therapy Diagnosis Therapy Diagnosis: Gait deficit, strength deficit, decline in balance. Precautions Precautions/Isolations: Fall Prevention, Standard Precautions Weight Bear Status Right Lower Extremity: Right Full Weight Bearing Left Lower Extremity: Left Full Weight Bearing Referral Physician: Dr. Mauricio Reason for Referral: Evaluation/Treatment Medical History Reviewed History: Yes Social History Home: Single Level Current Living Status: Children Entry Into Home: Stairs Without Railing PT Steps Into Home: 1 Prior Prior Level of Function SCALE: Activities may be completed with or without assistive devices. 6-Ypwvontfqw-wonfnno completes the activity by him/herself with no assistance from a helper. 5-Set-up or Clean-up Assistance-helper sets up or cleans up; patient completes activity. [place] assists only prior to or following the activity. 4-Supervision or Touching Assistance-helper provides verbal cues and/or touching/steadying and/or contact guard assistance as patient completes activity. Assistance may be provided throughout the activity or intermittently. 3-Partial/Moderate Assistance-helper does LESS THAN HALF the effort. [place] lifts, holds or supports trunk or limbs, but provides less than half the effort. 2-Substantial/Maximal Assistance-helper does MORE THAN HALF the effort. [place] lifts or holds trunk or limbs and provides more than half the effort. 7-Jmfbdcgav-cqhmzo does ALL the effort. Patient does none of the effort to complete the activity. Or, the assistance of 2 or more helpers is required for the patient to complete the activity. If activity was not attempted, code reason: 7-Patient Refused. 9-Not Applicable-not attempted and the patient did not perform the activity before the current illness, exacerbation or injury. 10-Not Attempted due to Environmental Limitations-(lack of equipment, weather restraints, etc.). 88-Not Attempted due to Medical Conditions or Safety Concerns. Bed Mobility: 6 Transfers (B,C,W/C): 6 Gait: 6 Stairs: 6 Indoor Mobility (Ambulation): Independent Stairs: Independent Prior Devices Use: Walker PT Evaluation-Current Subjective Patient lying in bed wiht HOB elevated fully. Patient rates pain currently at 0/10, however notes he usually experiences severe LBP. Patient agreeable to treatment. Objective Patient Orientation: Person, Place, Time, Situation Attachments: Oxygen, Mancini Catheter, IV ROM/Strength ROM Lower Extremities WFLs bilaterally all planes Strength Lower Extremities 4-/5 bilaterally all planes. Sensory Vision: Functional Hearing: Functional Sensation Right Lower Extremit: Impaired Sensation Left Lower Extremity: Impaired Sensation Lower Extremities Patient unable to fully feel light touch from L5 and inferiorly. Transfers Roll Left to Right (QC): 3 Sit to Lying (QC): 3 Lying to Sitting/Side of Bed(Q: 3 Sit to Stand (QC): 3 Chair/Ryb-xf-Chvtm Xfer(QC): 3 Gait Does the Patient Walk?: Yes Mode of Locomotion: Walk Anticipated Mode of Locomotion: Walk Walk 10 feet (QC): 88 Distance: 4 feet Gait Assistive Device: FWW Balance Sitting Static: Fair Sitting Dynamic: Fair Standing Static: Poor Standing Dynamic: Poor Assessment/Needs Patient requires min A for transfers of sit to supine, bed mobility, and mod A for sit to stand and bed to chair. Patient ambulates 4 feet with FWW, with mod A and verbal cues. Patient tends to lean to the left and posteriorly and requires min/mod A to maintain standing. Patient attempts to ambulate further distances, but is unable to do so due to poor balance. Patient in chair post treatment with all needs met, nursing notified, call light in hand. Rehab Potential: Fair PT Longterm Goals Investment Director Goals PT Investment Director Goals Time Frame: Jul 26, 2022 Roll Left & Right (QC): 6 Sit to Lying (QC): 6 Lying-Sitting on Side/Bed(QC): 6 Sit to Stand (QC): 6 Chair/Vbw-pq-Ywqko Xfer(QC): 6 Toilet Transfer (QC): 6 Does the Patient Walk: Yes Walk 10 feet (QC): 6 Walk 50ft with 2 Turns (QC): 6 Walk 150 ft (QC): 4 1 Step (curb) (QC): 4 PT Plan Problem List Problem List: Activity Tolerance, Functional Strength, Safety, Balance, Gait, Bed Mobility, ROM Treatment/Plan Treatment Plan: Continue Plan of Care Treatment Plan: Bed Mobility, Education, Functional Activity Shaina, Functional Strength, Group Therapy, Gait, Safety, Therapeutic Exercise, Transfers Treatment Duration: Aug 09, 2022 Frequency: 6 times per week Estimated Hrs Per Day: .25 hour per day Patient and/or Family Agrees t: Yes Safety Risks/Education Patient Education: Gait Training, Transfer Techniques Teaching Recipient: Patient Teaching Methods: Demonstration, Discussion Response to Teaching: Reinforcement Needed Time Time In: 1320 Time Out: 1350 DATE: Jul 15, 2022 Total Billed Treatment Time: 30 Total Billed Treatment Visit, IMANI AGRAWAL JOHN A PT Jul 15, 2022 13:49
--- NOTE | 2022-07-15 15:19 | Progress Note ---
Subjective Subjective/Events-last exam Pt seen at 0830, states he is feeling okay, denies nausea or shortness of breath. He is to have EGD today, states he isn't sure if he is going to do that. Objective Exam Last Set of Vital Signs Vital Signs Date Time Temp Pulse Resp B/P (MAP) Pulse Ox O2 Delivery O2 Flow Rate FiO2 07/15/22 14:00 78 32 116/63 (80) 92 Nasal Cannula 3.00 07/15/22 03:05 36.5 Capillary Refill : Less Than 3 Seconds I&O Intake and Output 07/15/22 00:00 Intake Total 3340 ml Output Total 2900 ml Balance 440 ml Intake Oral 1890 ml IV Total 1450 ml Output Urine Total 2900 ml # Voids 1 General: Alert, No Acute Distress Lungs: Other (ronchi) Abdomen: Normal Bowel Sounds, Soft Extremities: Other (scaling and scabbed skin on both legs) Psych/Mental Status: Other (flat affect) Results/Procedures Lab Laboratory Tests 07/14/22 19:55: Sodium Level 139, Potassium Level 2.7L, Chloride Level 101, Carbon Dioxide Level 27, Anion Gap 11, Blood Urea Nitrogen 6L, Creatinine 0.61, Estimat Glomerular Filtration Rate 109, BUN/Creatinine Ratio 10, Glucose Level 183H, Calcium Level 6.3L, Magnesium Level 2.0 07/14/22 23:33: Glucometer 110 07/15/22 05:28: Glucometer 107 07/15/22 05:29: Sodium Level 138, Potassium Level 4.3, Chloride Level 105, Carbon Dioxide Level 26, Anion Gap 7, Blood Urea Nitrogen 5L, Creatinine 0.56L, Estimat Glomerular Filtration Rate 112, BUN/Creatinine Ratio 9, Glucose Level 109H, Calcium Level 6.5L, Magnesium Level 1.9, White Blood Count 10.7, Red Blood Count 4.19L, Hemoglobin 13.0L, Hematocrit 38L, Mean Corpuscular Volume 90, Mean Corpuscular Hemoglobin 31, Mean Corpuscular Hemoglobin Concent 34, Red Cell Distribution Width 12.9, Platelet Count 218, Mean Platelet Volume 9.3, Immature Granulocyte % (Auto) 1, Neutrophils (%) (Auto) 71, Lymphocytes (%) (Auto) 20, Monocytes (%) (Auto) 6, Eosinophils (%) (Auto) 2, Basophils (%) (Auto) 0, Neutrophils # (Auto) 7.6, Lymphocytes # (Auto) 2.1, Monocytes # (Auto) 0.7, Eosinophils # (Auto) 0.2, Basophils # (Auto) 0.0, Immature Granulocyte # (Auto) 0.1, Phosphorus Level 2.0L 07/15/22 12:06: Glucometer 149H Microbiology 07/14/22 Blood Culture - Preliminary, Resulted No growth Radiology Assessment/Plan Assessment/Plan (1) Gastritis Status: Acute Assessment & Plan: PPI, ondansetron prn. NS at 100 mls/hr. Discussed CT findings with daughter. Pt this am stating he may not agree to EGD, discussed that I would recommend, even if he doesn't want treatment, the information would be helpful for planning. Qualifiers: Qualified Codes: K29.00 - Acute gastritis without bleeding (2) Hypomagnesemia Status: Resolved Assessment & Plan: Suspect secondary to nausea/vomiting and poor intake. Replace and recheck (3) Recurrent falls Status: Acute Assessment & Plan: PT (4) Hypokalemia Status: Resolved Assessment & Plan: Suspect secondary to nausea/vomiting and poor intake. Replace and recheck (5) Nausea and vomiting in adult patient Status: Acute Assessment & Plan: Denies nausea and vomiting now, will monitor after EGD when resuming intake. (6) Gastric wall thickening Status: Acute (7) Abdominal aortic aneurysm Status: Chronic Assessment & Plan: 5.6 cm, may need repair, has outpatient referral scheduled. (8) Diabetes Status: Chronic Assessment & Plan: Sliding scale insulin, diabetic diet when tolerating Qualifiers: Qualified Codes: E11.65 - Type 2 diabetes mellitus with hyperglycemia; Z79.4 - nursing home (current) use of insulin (9) Hypertension Status: Chronic Assessment & Plan: Resume home meds. (10) Hyperlipidemia Status: Chronic (11) Coronary artery disease Status: Chronic (12) COPD (chronic obstructive pulmonary disease) Status: Chronic Assessment & Plan: Resume home meds, supposed to use supplemental O2 at baseline. Somnolent this am, CT chest and head pending. (13) DVT prophylaxis Status: Acute Assessment & Plan: Enoxaparin CEE GREGORIO MD Jul 15, 2022 15:18
[2022-07-15] MEDS: ENOXAPARIN 40 MG/0.4 ML (LOVENOX) SYR SQ SCH (15:38)
[2022-07-15] MEDS ORDERED: NICOTINE 21 MG (NICODERM) PATCH TD NR (18:30)
[2022-07-16] VITALS: BP 164/81
[2022-07-16 02:00] VITALS: BP 130/73
[2022-07-16] MEDS ORDERED: TROUGH ORDER-PHARMACY XX ONE (04:00)
[2022-07-16] MEDS: PIPERACILLIN SODIUM/TAZOBACTAM 4.5 GM in NS (IVPB) 100 ML IV SCH ×2 (04:44→13:24)
[2022-07-16 04:45] VITALS: BP 128/80
[2022-07-16 04:54] LABS: BASOPHILS % (AUTO) 0 % (0-10); EOSINOPHILS # (AUTO) 0.5 10^3/uL (0.0-0.3); EOSINOPHILS % (AUTO) 4 % (0-10); HEMATOCRIT 35 % (40-54); HEMOGLOBIN 12.3 g/dL (13.3-17.7); LYMPHOCYTES # (AUTO) 2.5 10^3/uL (1.0-4.0); LYMPHOCYTES % (AUTO) 23 % (12-44); MEAN CORPUSCULAR HEMOGLOBIN 32 pg (25-34); MEAN CORPUSCULAR HGB CONC 35 g/dL (32-36); MEAN CORPUSCULAR VOLUME 90 fL (80-99); MEAN PLATELET VOLUME 9.5 fL (9.0-12.2); MONOCYTES # (AUTO) 0.6 10^3/uL (0.0-1.0); MONOCYTES % (AUTO) 6 % (0-12); NEUTROPHILS # (AUTO) 7.2 10^3/uL (1.8-7.8); NEUTROPHILS % (AUTO) 66 % (42-75); PLATELET COUNT 235 10^3/uL (130-400); WHITE BLOOD COUNT 10.8 10^3/uL (4.3-11.0)
[2022-07-16 05:12] LABS: CALCIUM 7.3 MG/DL (8.5-10.1); CREATININE SERUM 0.61 MG/DL (0.60-1.30); MAGNESIUM 1.9 MG/DL (1.6-2.4); PHOSPHORUS 2.5 MG/DL (2.3-4.7); POTASSIUM 3.3 MMOL/L (3.6-5.0)
[2022-07-16 05:18] LABS: VANCOMYCIN,TROUGH 12.1 UG/ML (10.0-20.0)
[2022-07-16] MEDS: inSUlin ASPART (NovoLOG) 1 UNIT/0.01 ML (CHARGE PER UNIT) SC SCH ×2 (05:19→13:24)
[2022-07-16] MEDS: VANCOMYCIN 1500MG/300ML PREMIX IV SCH (06:20)
[2022-07-16] MEDS: NS IV 1000 ML 1,000 ML IV SCH ×2 (06:20→13:25)
[2022-07-16] MEDS ORDERED: KCL 20 MEQ TAB (K-DUR) PO ONE (07:00)
[2022-07-16 07:46] VITALS: BP 141/80
--- NOTE | 2022-07-16 07:56 | Progress Note - Surgery ---
DIAN JORDAN 07/16/22 0755: Subjective Date Seen by a Provider: Jul 16, 2022 Time Seen by a Provider: 07:15 Subjective/Events-last exam 61 M on day 2 of admission for AMS secondary to continuous vomiting. Pt was eating breakfast this morning comfortably in bed. Pt denies any pain today. Denies fever, chills, n/v, SOB, or urinary symptoms. Claims he is voiding and passing stools w/o complaint. States he is tolerating a normal diet with w/o complaints. Review of Systems General: No Chills, No Night Sweats HEENT: No Head Aches, No Dysphasia Pulmonary: No Dyspnea, No Cough Cardiovascular: No: Chest Pain, Palpitations Gastrointestinal: No: Nausea, Vomiting, Abdominal Pain Genitourinary: No Dysuria, No Frequency Musculoskeletal: No: back pain, leg pain Neurological: No: Weakness, Confusion Objective Exam Vital Signs Date Time Temp Pulse Resp B/P (MAP) Pulse Ox O2 Delivery O2 Flow Rate FiO2 07/16/22 07:46 36.3 69 14 141/80 (100) 95 Nasal Cannula 3.00 07/16/22 04:45 66 13 128/80 (93) 95 Nasal Cannula 3.00 07/16/22 04:45 36.6 07/16/22 02:00 67 7 130/73 (92) 96 Nasal Cannula 3.00 07/16/22 01:00 68 07/16/22 00:00 66 18 164/81 (108) 97 Nasal Cannula 3.00 07/15/22 20:46 81 18 139/86 (103) 96 Nasal Cannula 3.00 07/15/22 20:00 36.5 07/15/22 20:00 95 Nasal Cannula 3.00 07/15/22 19:00 77 07/15/22 18:00 75 26 124/66 (85) 98 Nasal Cannula 3.00 07/15/22 17:00 73 29 119/74 (89) 96 Nasal Cannula 3.00 07/15/22 16:13 92 Nasal Cannula 3.00 07/15/22 16:00 69 29 107/61 (76) 96 Nasal Cannula 3.00 07/15/22 15:00 69 18 117/64 (81) 97 Nasal Cannula 3.00 07/15/22 14:00 78 32 116/63 (80) 92 Nasal Cannula 3.00 07/15/22 13:00 75 33 95 Nasal Cannula 3.00 07/15/22 12:56 74 07/15/22 12:00 65 17 116/72 (87) 94 Nasal Cannula 3.00 07/15/22 12:00 92 Nasal Cannula 3.00 07/15/22 11:00 75 20 120/67 (84) 93 Nasal Cannula 3.00 07/15/22 10:00 63 15 128/69 (88) 97 Nasal Cannula 3.00 07/15/22 09:00 70 16 139/75 (96) 95 Nasal Cannula 3.00 07/15/22 08:00 92 Nasal Cannula 3.00 07/15/22 08:00 71 11 144/80 (101) 97 Nasal Cannula 3.00 I & O 07/16/22 07:00 Intake Total 1560 ml Output Total 1901 ml Balance -341 ml Capillary Refill : Less Than 3 Seconds General Appearance: No Apparent Distress, Chronically ill HEENT: PERRL/EOMI, Moist Mucous Membranes Neck: Normal Inspection, Non Tender Respiratory: Chest Non Tender, Normal Breath Sounds, No Accessory Muscle Use, No Respiratory Distress Cardiovascular: Regular Rate, Rhythm, No Murmur Peripheral Pulses: 2+ Radial Pulses (R), 2+ Radial Pulses (L) Gastrointestinal: non tender, soft, no organomegaly, hernia (large incarcerated umbilical hernia), other (Pulsatile mass - mid abd) Extremity: No Calf Tenderness, No Pedal Edema Neurologic/Psychiatric: Alert, Depressed Affect Skin: Warm/Dry, Ecchymosis Lymphatic: No Adenopathy Results Lab Laboratory Tests 07/15/22 12:06: Glucometer 149H 07/15/22 16:10: Glucometer 216H 07/15/22 22:26: Glucometer 135H 07/16/22 04:38: White Blood Count 10.8, Red Blood Count 3.87L, Hemoglobin 12.3L, Hematocrit 35L, Mean Corpuscular Volume 90, Mean Corpuscular Hemoglobin 32, Mean Corpuscular Hemoglobin Concent 35, Red Cell Distribution Width 12.8, Platelet Count 235, Mean Platelet Volume 9.5, Immature Granulocyte % (Auto) 1, Neutrophils (%) (Auto) 66, Lymphocytes (%) (Auto) 23, Monocytes (%) (Auto) 6, Eosinophils (%) (Auto) 4, Basophils (%) (Auto) 0, Neutrophils # (Auto) 7.2, Lymphocytes # (Auto) 2.5, Monocytes # (Auto) 0.6, Eosinophils # (Auto) 0.5H, Basophils # (Auto) 0.0, Immature Granulocyte # (Auto) 0.1, Sodium Level 136, Potassium Level 3.3L, Chloride Level 105, Carbon Dioxide Level 23, Anion Gap 8, Blood Urea Nitrogen 10, Creatinine 0.61, Estimat Glomerular Filtration Rate 109, BUN/Creatinine Ratio 16, Glucose Level 130H, Calcium Level 7.3L, Phosphorus Level 2.5, Magnesium Level 1.9, Vancomycin Level Trough 12.1 Microbiology 07/14/22 Blood Culture - Preliminary, Resulted No growth Assessment/Plan Assessment/Plan Assessment/Plan Intractable nausea and vomiting - resolved at this time Hypokalemia- worsening hypomagnesemia, hypocalcemia - improving Possible Gastric Mass - pt refused EGD Abdominal aortic aneurysm (5.6 cm) Hypercapnia and Hypoxia Metabolic acidosis Protein Malnutrition umbilical hernia continue normal diet Continue Electrolyte Repletion, add KCl continue nicotine supplementation Oxygen as Needed PATRICK TRACY DO 07/16/22 1607: Subjective Time Seen by a Provider: 08:41 Subjective/Events-last exam Pt seen and examined, no new complaints. He said to me he would f/u as an outpt to get the EGD, "after I get my gut fixed". I believe he is talking about his AAA. Review of Systems General: No Chills, No Night Sweats Pulmonary: No Dyspnea, No Cough Cardiovascular: No: Chest Pain, Palpitations Gastrointestinal: No: Nausea, Vomiting, Abdominal Pain Objective Exam General Appearance: No Apparent Distress, Chronically ill HEENT: PERRL/EOMI, Moist Mucous Membranes Respiratory: Chest Non Tender, Normal Breath Sounds, No Accessory Muscle Use, No Respiratory Distress Cardiovascular: Regular Rate, Rhythm, No Murmur Gastrointestinal: non tender, soft, no organomegaly, hernia (large incarcerated umbilical hernia), other (Pulsatile mass - mid abd) Assessment/Plan Assessment/Plan Assessment/Plan Intractable nausea and vomiting - resolved at this time Hypokalemia- went from 2.7 to 4.3 yesterday to 3.3 today hypomagnesemia, hypocalcemia - improving Possible Gastric Mass - pt agreed to do EGD as outpt. Abdominal aortic aneurysm (5.6 cm) Hypercapnia and Hypoxia Metabolic acidosis Protein Malnutrition umbilical hernia continue normal diet Continue Electrolyte Repletion, add KCl continue nicotine supplementation Oxygen as Needed I will sign off and can reconsult if needed. Supervisory-Addendum Brief Verification & Attestation Participated in pt care: history, MDM, physical Personally performed: exam, history, MDM, supervision of care Care discussed with: Medical Student Procedures: n/a Verification and Attestation of Medical Student E/M Service A medical student performed and documented this service. I then reviewed and verified all information documented by the medical student and made modifications to such information, when appropriate. I personally performed a physical exam, medical decision making and then discussed any differences between the notes and made revisions as necessary to create one note. Patrick Tracy , 07/16/22 , 16:07 DIAN JORDAN Jul 16, 2022 07:55 PATRICK TRACY DO Jul 16, 2022 16:07
[2022-07-16] MEDS: ISOSORBIDE MONONITRATE 30 MG (IMDUR) TAB PO SCH (08:30)
[2022-07-16] MEDS: PANTOPRAZOLE 40 MG (PROTONIX) VIAL IV SCH (08:30)
[2022-07-16] MEDS: PREGABALIN 150 MG (LYRICA) CAPSULE PO SCH (08:30)
[2022-07-16] MEDS ORDERED: NICOTINE PATCH REMOVAL TP SCH (08:59)
[2022-07-16] MEDS ORDERED: NICOTINE 21 MG (NICODERM) PATCH TD SCH (09:00)
[2022-07-16] MEDS ORDERED: lisINopril 20 MG (PRINIVIL) TABLET PO SCH (09:00)
--- NOTE | 2022-07-16 09:25 | ST Dysphagia Evaluation ---
Speech Evaluation-General Medical Diagnosis Severe Electrolyte Distrubances, Hypoxia Onset Date: Jul 13, 2022 Therapy Diagnosis Therapy Diagnosis: Intact Oropharyngeal Swallow Function Precautions Precautions: Fall, Aspiration Precautions/Isolations: Aspiration, Fall Prevention, Standard Precautions Referral Referring Physician: Dr. Mauricio Reason for Referral: Evaluation/Treatment Medical History Reviewed History: Yes Social History Current Living Status: Children Speech PLF/Current-Dysphagia Prior Level of Function The patient reported he consumes a regular consistency diet with thin liquids at home regardless of his edentulous state. Per patient, "I just need to make sure I have some water or something to help it down." The patient denied concerns regarding s/s of suspected aspiration. Subjective The patient was seated upright in bed, awake and alert, upon entrance to his room by the clinician. The patient greeted the clinician appropriately and was agreeable to participation in the clinical bedside swallowing evaluation. The patient is at 93% on room air. The patient's nasal cannula is present, however, the patient refuses to place the nasal cannula at this time. The patient remained above 91% prior to, throughout, and following the swallowing assessment on room air. Cognitive Status Patient Orientation: Person, Place, Time, Situation Oral Motor Skills Dentition: Edentalous Current Food Consistancy: Regular, Thin Liquids Ability to Follow Directions: Good Oral Expression Ability: Mild Impairment Voice Voice Phonatory-Based Quality: Normal Voice Pitch: Normal Voice Loudness: Normal Face Facial Symmetry: Symmetrical Oral-Facial Assessment Oral-Facial Dentition: Normal Labial Seal Description: Normal Smile: Normal Lingual Protrusion: Normal Lingual ROM: Normal Lingual Strength: Normal Volitional Dry Swallow: Yes Voluntary Cough: Yes Can Clear Throat Volitionally: Yes Productive Cough: Yes Productive Throat Clear: Yes Dysphagia Evaluation Consistencies Presented: Regular, Thin Liquid, Pureed The patient displayed slightly prolonged mastication with the solid consistency due to his edentulous state. The patient independently cleared the solid bolus from the oral cavity with a drink of thin liquid. No pharyngeal impairments were present throughout the evaluation. The patient does not display s/s of suspected aspiration with thin liquids, puree, or solid consistencies tested. Dietary Recommendations: Regular Liquid Recommendations: Thin Recommendations: - Regular consistency diet with thin liquids, as tolerated. - Fully upright and alert for P.O. intake. - Small bites and sips. - Remain upright for approximately 30 minutes following P.O. intake. - Monitor for s/s of suspected aspiration with P.O. intake. If demonstrated, please contact speech pathology. The results, recommendations, and safe swallowing precautions were discussed with the patient immediately following the evaluation. Dysphagia Evaluation Summary The patient demonstrated an intact oropharyngeal swallowing function. Speech Short Term Goals Short Term Goals Short Term Goals 1. The patient will display safe swallowing precautions without s/s of suspected aspiration. Time Frame-STG: Three days. Speech Radiology Interventional Physician Goals Skilled Nursing Goals 1. The patient will tolerate the least restrictive diet consistency without s/s of suspected aspiration. Time Frame: Five Days. Speech-Plan Treatment Plan Speech Therapy Treatment Plan: Continue Plan of Care Treatment Duration: Jul 16, 2022 Frequency: 3 times per week Estimated Hrs Per Day: .25 hour per day Rehab Potential: Fair Pt/Family Agrees to Plan: Yes Safety Risks/Education Teaching Recipient: Patient Teaching Methods: Discussion Response to Teaching: Verbalize Understanding Education Topics Provided: Results, Recommendations, Plan of Care, Safe Swallowing Precautions Time Speech Therapy Time In: 08:40 Speech Therapy Time Out: 09:00 DATE: Jul 16, 2022 Total Billed Time: 20 Billed Treatment Time 1, MINERVA PINO [facility] Jul 16, 2022 09:25
--- NOTE | 2022-07-16 11:09 | Tele-ICU Progress Note ---
Subjective Date Seen by a Provider: Jul 16, 2022 Time Seen by a Provider: 11:09 Subjective/Events-last exam (Tele-ICU Physician , Progress Note ) Service provided via interactive audio and video telecommunications E-CARE system to a patient admitted to ICU bed in [facility]. Patient is seen today due to persistent need of ICU care Available chart/ vitals / labs / Images reviewed Video assessment done using teleICU camera, rest of exam as per RN Discussed with RN Events overnight : Afebrile hemodynamically stable Respiratory - 3 l I/O = Drips: Pressors- no Hospital course: 07/13: 61 y/o male preseneted to the ED with 2-3 day h/o N/V. Admitted with hypokalemia, hypocalcemia, acute gastritis. A/P inttermediate gastric wall thickening primarily posterior stomach wall concer memo for possible mass - as per RN - patient discussed with Sx and PCP , refused EGD or any w/up at present time Abdominal aortic aneurysm without rupture and has been a chronic Bilateral pneumonia basilar question of aspiration is raised. - zosyn vanco - ? needs speech eval - as per bedside team CT with reports of "Extensive edema in around the left shoulder and chest wall, concerning for potential underlying infectious or inflammatory process" - as per PCP exam and plan Altered mental status most likely due to sepsis and pneumonia - RESOLVED - CT WNL Acute hypoxic respiratory failure secondary to pneumonia and possibly underlying COPD - baseline Chronic tobacco abuse disorder DM II - ISS s/p falls - CTH neg 07/14 Lines : periph , (Central Line Necessity Reviewed) Mancini: OG: Nutrition: Analgesia: Anxiety/ delirium VTE Prophylaxis: kathleen 40 Stress Ulcer Prophylaxis: Plans in collaboration with bedside consultants and IM MDs. Discussed with RN to reach out if any questions or concerns A total of 15 minutes of critical care time was devoted to this patient today, required to treat and/or prevent further deterioration of critical care condition ( as above ) . I am remotely monitoring this patient from another state. I am unable to do the bedside exam, and history/physical and pertinent information is taken from other notes in the computer and bedside staff. Sepsis Event Evaluation Height, Weight, BMI Height: '" Weight: lbs. oz. kg; 29.48 BMI Method: Exam Exam Patient acknowledged, consented, and participated in this virtual visit which was conducted using real time audio/video Vital Signs Date Time Temp Pulse Resp B/P (MAP) Pulse Ox O2 Delivery O2 Flow Rate FiO2 07/16/22 09:00 92 Nasal Cannula 3.00 07/16/22 07:46 36.3 69 14 141/80 (100) 95 Nasal Cannula 3.00 07/16/22 07:04 68 07/16/22 04:45 66 13 128/80 (93) 95 Nasal Cannula 3.00 07/16/22 04:45 36.6 07/16/22 02:00 67 7 130/73 (92) 96 Nasal Cannula 3.00 07/16/22 01:00 68 07/16/22 00:00 66 18 164/81 (108) 97 Nasal Cannula 3.00 07/15/22 20:46 81 18 139/86 (103) 96 Nasal Cannula 3.00 07/15/22 20:00 36.5 07/15/22 20:00 95 Nasal Cannula 3.00 07/15/22 19:00 77 07/15/22 18:00 75 26 124/66 (85) 98 Nasal Cannula 3.00 07/15/22 17:00 73 29 119/74 (89) 96 Nasal Cannula 3.00 07/15/22 16:13 92 Nasal Cannula 3.00 07/15/22 16:00 69 29 107/61 (76) 96 Nasal Cannula 3.00 07/15/22 15:00 69 18 117/64 (81) 97 Nasal Cannula 3.00 07/15/22 14:00 78 32 116/63 (80) 92 Nasal Cannula 3.00 07/15/22 13:00 75 33 95 Nasal Cannula 3.00 07/15/22 12:56 74 07/15/22 12:00 65 17 116/72 (87) 94 Nasal Cannula 3.00 07/15/22 12:00 92 Nasal Cannula 3.00 I & O 07/16/22 07:00 Intake Total 1560 ml Output Total 1901 ml Balance -341 ml Height & Weight Height: '" Weight: lbs. oz. kg; 29.48 BMI Method: General Appearance: No Apparent Distress, Chronically ill HEENT: PERRL/EOMI, Moist Mucous Membranes Neck: Normal Inspection, Non Tender Respiratory: Chest Non Tender, Normal Breath Sounds, No Accessory Muscle Use, No Respiratory Distress Cardiovascular: Regular Rate, Rhythm, No Murmur Capillary Refill: Less Than 3 Seconds Peripheral Pulses: 2+ Radial Pulses (R), 2+ Radial Pulses (L) Gastrointestinal: non tender, soft, no organomegaly, hernia (large incarcerated umbilical hernia), other (Pulsatile mass - mid abd) Extremity: No Calf Tenderness, No Pedal Edema Neurologic/Psychiatric: Alert, Depressed Affect Skin: Warm/Dry, Ecchymosis Lymphatic: No Adenopathy Results Lab Laboratory Tests 07/14/22 13:15 07/14/22 19:55 07/15/22 05:29 07/16/22 04:38 Assessment/Plan Assessment/Plan 1 BLADE COLE MD Jul 16, 2022 11:09
--- NOTE | 2022-07-16 11:51 | Physical Therapy Daily Note ---
PT Daily Note-Current Subjective Patient lying supine in bed upon PT arrival, agreeable to treatment. Patient reports 0/10 pain currently. Pain Section J - Health Conditions 1. Rarely or not at all 2. Occasionally 3. Frequently 4. Almost constantly 8. Unable to answer Pain Effect on Sleep: 1 Pain Interference with Therapy: 1 Pain Interference w/Day-to-Day: 1 Transfers SCALE: Activities may be completed with or without assistive devices. 2-Nuiwlwwhxr-cfdxjmj completes the activity by him/herself with no assistance from a helper. 5-Set-up or Clean-up Assistance-helper sets up or cleans up; patient completes activity. [employer] assists only prior to or following the activity. 4-Supervision or Touching Assistance-helper provides verbal cues and/or touching/steadying and/or contact guard assistance as patient completes activity. Assistance may be provided throughout the activity or intermittently. 3-Partial/Moderate Assistance-helper does LESS THAN HALF the effort. [employer] lift s, holds or supports trunk or limbs, but provides less than half the effort. 2-Substantial/Maximal Assistance-helper does MORE THAN HALF the effort. [employer] lifts or holds trunk or limbs and provides more than half the effort. 9-Cjqycxcvc-yubbxj does ALL the effort. Patient does none of the effort to complete the activity. Or, the assistance of 2 or more helpers is required for the patient to complete the activity. If activity was not attempted, code reason: 7-Patient Refused. 9-Not Applicable-not attempted and the patient did not perform the activity before the current illness, exacerbation or injury. 10-Not Attempted due to Environmental Limitations-(lack of equipment, weather restraints, etc.). 88-Not Attempted due to Medical Conditions or Safety Concerns. Roll Left & Right (QC): 4 Sit to Lying (QC): 4 Lying to Sitting/Side of Bed(Q: 4 Sit to Stand (QC): 3 Chair/Nuk-zi-Imlag Xfer(QC): 2 Weight Bearing Right Lower Extremity: Right Full Weight Bearing Left Lower Extremity: Left Full Weight Bearing Gait Training Does the Patient Walk?: Yes Distance: 20 feet Walk 10 feet (QC): 2 Gait Persons Needed: 1 Gait Assistive Device: FWW Assessment Current Status: Fair Progress Patient demonstrates improved bed mobility and transfers initially, however upon standing from the bed patient loses his balance to the right and retropulsively. Patient requires max A to avoid falling. Once he regains his balance, patient ambulates 20 feet with FWW, with min/mod A and verbal cues for safety, progression, posture and balance. Patient in transport chair per nursing request with call light in hand, nurse notified and all needs met. PT Mcfp Goals Store Promoter Goals PT Store Promoter Goals Time Frame: Jul 26, 2022 Roll Left & Right (QC): 6 Sit to Lying (QC): 6 Lying-Sitting on Side/Bed(QC): 6 Sit to Stand (QC): 6 Chair/Vle-ds-Ngbrm Xfer(QC): 6 Toilet Transfer (QC): 6 Does the Patient Walk: Yes Walk 10 feet (QC): 6 Walk 50ft with 2 Turns (QC): 6 Walk 150 ft (QC): 4 1 Step (curb) (QC): 4 PT Plan Treatment/Plan Treatment Plan: Continue Plan of Care Treatment Plan: Bed Mobility, Education, Functional Activity Shaina, Functional Strength, Group Therapy, Gait, Safety, Therapeutic Exercise, Transfers Treatment Duration: Aug 09, 2022 Frequency: 6 times per week Estimated Hrs Per Day: .25 hour per day Patient and/or Family Agrees t: Yes Safety Risks/Education Patient Education: Gait Training, Transfer Techniques Teaching Recipient: Patient Teaching Methods: Demonstration, Discussion Response to Teaching: Reinforcement Needed Time Time In: 1130 Time Out: 1143 DATE: Jul 16, 2022 Total Billed Treatment Time: 13 Total Billed Treatment Visit, Gait MIN COPE PT Jul 16, 2022 11:51
[2022-07-16 12:15] VITALS: BP 136/76
[2022-07-16] MEDS ORDERED: GADOTERATE 0.5 MMOL/ML (CLARISCAN) 20 ML VIAL IV ONE (12:45)
--- NOTE | 2022-07-16 14:25 | Diagnostic Imaging Report ---
EXAMINATION: Magnetic resonance imaging of the left shoulder without and with contrast. DATE: July 16, 2022. COMPARISON: CT chest July 14, 2022. HISTORY: 61-year-old male, left shoulder pain. TECHNIQUE: Magnetic Resonance Imaging sequences were performed of the shoulder without and with intravenous contrast. FINDINGS: ROTATOR CUFF, LIGAMENTS, TENDONS, AND MUSCLES: There are full thickness full width tears of the supraspinatus, infraspinatus, and subscapularis tendons. Tendon retraction as well as to the level of the glenoid. The teres minor tendon is intact. There is severe fatty atrophy of the rotator cuff musculature. LONG HEAD OF BICEPS: The proximal long head of biceps tendon is not present in its intra-articular segment and likely is torn and retracted level of the lower margin of the bicipital groove. GLENOHUMERAL JOINT: The humeral head is superiorly subluxed relative to the glenoid and directly abuts the undersurface of the acromion. There are broad areas of full-thickness glenohumeral joint space loss. There is a tear of the remaining posterior labrum and degenerative volume loss of the anterior labrum. There is also blunting of the anterior margin of the glenoid. There is a large glenohumeral joint effusion with synovitis. The glenohumeral joint fluid is communicating with the subacromial subdeltoid bursa and also is dissecting into the adjacent soft tissues. ACROMIOCLAVICULAR JOINT: The acromioclavicular joint is normally aligned. The coracoclavicular and coracoacromial ligaments are intact. There are mild acromio clavicular degenerative changes without large undersurface osteophyte. BONE: There is no os acromiale. There is no Hill-Sachs deformity. There is T1 marrow signal loss in the glenoid and humeral head as well as edema and enhancement within the bones. There is no identified acute fracture. There is no evidence of osteonecrosis. BURSAE AND SOFT TISSUES: There is a large amount of fluid in the subacromial subdeltoid bursa as well as communication of additional abnormal glenohumeral joint fluid into the adjacent soft tissues. There is also adjacent soft tissue edema. IMPRESSION: 1. End-stage arthritis of the left shoulder which potentially could relate to septic arthritis or an inflammatory or crystalline arthropathy. There is a very large glenohumeral joint effusion present dissecting into the adjacent soft tissues and communicating with the subacromial subdeltoid bursa with prominent synovitis. Analysis of fluid for definitive diagnosis is recommended if not already known. 2. Abnormal marrow signal changes in the humeral head and glenoid which likely relates to arthritic process and may reflect osteomyelitis. 3. Massive full-thickness rotator cuff tendon tear with tendon retraction and severe fatty atrophy of the rotator cuff musculature. 4. Mild acromio clavicular degenerative changes without large undersurface osteophyte. 5. Tear of the proximal long head of the biceps tendon which is retracted to the level of the lower margin of the bicipital groove. Dictated by: Dictated on workstation # [id number]
[2022-07-16 15:45] VITALS: BP 158/85
--- NOTE | 2022-07-16 19:47 | Discharge Summary ---
Discharge Summary Hospital Course Problems/Diagnosis: (1) Gastritis Status: Acute Assessment & Plan: PPI, ondansetron prn. NS at 100 mls/hr. Discussed CT findings with daughter. Pt this am stating he may not agree to EGD, discussed that I would recommend, even if he doesn't want treatment, the information would be helpful for planning. 07/16 declined EGD yesterday, still does not want at this time. Discussed in the morning that if he was able to transfer safely with PT would consider d/c, however he did still need significant assistance and did not appear safe for home d/c, he chose to leave AMA. Qualifiers: Qualified Codes: K29.00 - Acute gastritis without bleeding (2) Hypomagnesemia Status: Resolved Resolution Date/Time: 07/15/22 @ 15:18 Assessment & Plan: Suspect secondary to nausea/vomiting and poor intake. Replaced. (3) Recurrent falls Status: Acute Assessment & Plan: PT (4) Hypokalemia Status: Resolved Resolution Date/Time: 07/15/22 @ 15:18 Assessment & Plan: Suspect secondary to nausea/vomiting and poor intake. Replace and recheck (5) Nausea and vomiting in adult patient Status: Resolved Resolution Date/Time: 07/16/22 @ 19:45 Assessment & Plan: Denies nausea and vomiting and reports tolerating diet on day he left. (6) Gastric wall thickening Status: Acute (7) Abdominal aortic aneurysm Status: Chronic Assessment & Plan: 5.6 cm, may need repair, has outpatient referral scheduled. (8) Diabetes Status: Chronic Assessment & Plan: Sliding scale insulin Qualifiers: Qualified Codes: E11.65 - Type 2 diabetes mellitus with hyperglycemia; Z79.4 - snf (current) use of insulin (9) Hypertension Status: Chronic Assessment & Plan: Resume home meds. (10) Hyperlipidemia Status: Chronic (11) Coronary artery disease Status: Chronic (12) COPD (chronic obstructive pulmonary disease) Status: Chronic Assessment & Plan: Resume home meds, supposed to use supplemental O2 at baseline. Somnolent this am, CT chest and head pending. Hospital Course Date of Admission: Jul 14, 2022 at 11:08 Admission Diagnosis : Family Physician/Provider: Marty Urrutia MD Date of Discharge: 07/16/22 Discharge Diagnosis: See problem list Hospital Course: See problem list. Left against medical advice. Labs and Pending Lab Test: Laboratory Tests 07/15/22 22:26: Glucometer 135H 07/16/22 04:38: White Blood Count 10.8, Red Blood Count 3.87L, Hemoglobin 12.3L, Hematocrit 35L, Mean Corpuscular Volume 90, Mean Corpuscular Hemoglobin 32, Mean Corpuscular Hemoglobin Concent 35, Red Cell Distribution Width 12.8, Platelet Count 235, Mean Platelet Volume 9.5, Immature Granulocyte % (Auto) 1, Neutrophils (%) (Auto) 66, Lymphocytes (%) (Auto) 23, Monocytes (%) (Auto) 6, Eosinophils (%) (Auto) 4, Basophils (%) (Auto) 0, Neutrophils # (Auto) 7.2, Lymphocytes # (Auto) 2.5, Monocytes # (Auto) 0.6, Eosinophils # (Auto) 0.5H, Basophils # (Auto) 0.0, Immature Granulocyte # (Auto) 0.1, Sodium Level 136, Potassium Level 3.3L, Chloride Level 105, Carbon Dioxide Level 23, Anion Gap 8, Blood Urea Nitrogen 10, Creatinine 0.61, Estimat Glomerular Filtration Rate 109, BUN/Creatinine Ratio 16, Glucose Level 130H, Calcium Level 7.3L, Phosphorus Level 2.5, Magnesium Level 1.9, Vancomycin Level Trough 12.1 07/16/22 10:38: Glucometer 180H Microbiology 07/14/22 Blood Culture - Preliminary, Resulted No growth Home Meds Active Reported Vitamin D2 (Ergocalciferol (Vitamin D2)) 1,250 Mcg (35737 Unit) Capsule 1,250 Mcg PO FRI Ventolin Hfa (Albuterol Sulfate) 90 Mcg Hfa.aer.ad 2 Puff INH Q6H PRN Pantoprazole Sodium 40 Mg Tablet.dr 40 Mg PO DAILY Pregabalin 150 Mg Capsule 150 Mg PO BID Isosorbide Mononitrate ER (Isosorbide Mononitrate) 30 Mg Tab.er.24h 30 Mg PO DAILY Insulin Glargine-Yfgn 100 Unit/Ml (3 Ml) Insuln.pen 42 Units SQ BID Hydrocodone-Acetamin 10-325 mg (Hydrocodone/Acetaminophen) 10 Mg-325 Mg Tablet 1 Ea PO QID PRN Dronabinol 10 Mg Capsule 10 Mg PO HS Aripiprazole 20 Mg Tablet 20 Mg PO DAILY Desvenlafaxine Succinate ER (Desvenlafaxine Succinate) 100 Mg Tab.er.24h 100 Mg PO DAILY Cyclobenzaprine HCl 10 Mg Tablet 10 Mg PO HS Bumetanide 1 Mg Tablet 1 Mg PO DAILY Atorvastatin Calcium 80 Mg Tablet 80 Mg PO DAILY Aspirin 81 Mg Tab.chew 81 Mg PO DAILY Amitriptyline HCl 50 Mg Tablet 150 Mg PO HS TAKES 3 (50MG) TABS Nebivolol HCl 10 Mg Tablet 20 Mg PO DAILY TAKES 2 (10MG) TABS Lisinopril 20 Mg Tablet 20 Mg PO DAILY Assessment/Pt DC Instructions Left AMA. Discharge Physical Examination Allergies: Coded Allergies: No Known Drug Allergies (Unverified , 02/26/22) General Appearance: No Apparent Distress Respiratory: Rhonci Cardiovascular: Regular Rate, Rhythm Skin: Warm/Dry Neurologic/Psychiatric: Alert, Oriented x3, Normal Mood/Affect CEE GREGORIO MD Jul 16, 2022 19:47
--- NOTE | 2022-07-17 13:47 | Physician Query Clarification ---
PQ-Present on Admission Admission/Discharge Admission Date: Jul 14, 2022 at 11:08 Discharge Date: Jul 16, 2022 at 15:40 Dr. Mauricio, Question: Pneumonia and sepsis was documented in 07/[address] Medeiros and 07/15 PN Christiano. Can you specify if this condition was present on admission? Please document a response in Progress Note or Discharge Summary. 1. Yes - Condition was present at the time of inpatient admission. 2. No - Condition was not present at the time of inpatient admission and it developed during the inpatient stay. 3. W - Provider is unable to clinically determine whether condition was present on admission or not. 4. Other [please specify] PHYSICIAN RESPONSE Condition was Present on Admit: No In responding to this query, please exercise your independent professional judgment. The purpose of this communication is to more accurately reflect the complexity of your patients condition. The fact that a question is asked does not imply that any particular answer is desired or expected. Thank you for your timely response to this clarification. Requestors name: Srinath THIS PHYSICIAN QUERY FORM IS A PERMANENT PART OF THE MEDICAL RECORD SRINATH PEÑA Jul 17, 2022 13:47 CEE MAURICIO MD Jul 25, 2022 18:00
== END 2022-07-16 15:40 | disposition left against medical advice (07) | DRG 391 ==
LOC: EDUNIT# 18:53 → ER FS 18:54 → ICU 23:25 → OBSVTOIN 07-14 11:08 → ICU 07-15 12:55 → 4TH 07-16 10:40
PROVIDERS: ADMIT Internal Medicine; ATTEND Family Medicine
DX: K29.00 Acute gastritis without bleeding (principal); A41.9 Sepsis, unspecified organism; J18.9 Pneumonia, unspecified organism; J96.01 Acute respiratory failure with hypoxia; J96.02 Acute respiratory failure with hypercapnia; E46 Unspecified protein-calorie malnutrition; J44.0 Chronic obstructive pulmonary disease with (acute) lower respiratory infection; E87.20 Acidosis, unspecified; K42.0 Umbilical hernia with obstruction, without gangrene; E87.6 Hypokalemia; E83.51 Hypocalcemia; E83.42 Hypomagnesemia; Z68.30 Body mass index [BMI] 30.0-30.9, adult; Z91.81 History of falling; I71.40 Abdominal aortic aneurysm, without rupture, unspecified; E11.40 Type 2 diabetes mellitus with diabetic neuropathy, unspecified; I11.0 Hypertensive heart disease with heart failure; I50.9 Heart failure, unspecified; E78.00 Pure hypercholesterolemia, unspecified; I25.10 Atherosclerotic heart disease of native coronary artery without angina pectoris; N40.0 Benign prostatic hyperplasia without lower urinary tract symptoms; F17.210 Nicotine dependence, cigarettes, uncomplicated; R53.81 Other malaise; R53.1 Weakness; M79.7 Fibromyalgia; G89.29 Other chronic pain; F32.A Depression, unspecified; M19.91 Primary osteoarthritis, unspecified site; M54.9 Dorsalgia, unspecified; H91.90 Unspecified hearing loss, unspecified ear; Z99.81 Dependence on supplemental oxygen; Z79.4 Long term (current) use of insulin; Z79.82 Long term (current) use of aspirin; Z79.899 Other long term (current) drug therapy; Z82.49 Family history of ischemic heart disease and other diseases of the circulatory system
CPT/HCPCS: 36415; 36600; 70450; 71250; 73223; 74176; 80048; 80053; 80202; 82805; 82947; 83690; 83735; 84100; 85025; 87040; 96361; 96374; G0378